=== PATIENT | female | born 1945 | race Two or more races ===

== ENCOUNTER → 2021-09-18 12:49 | Outpatient (BNVA) | payer OTHER, SELFPAY | PROVIDERS: PCP Pediatrics; Visit Provider Nurse Practitioner Family | DX: G20 Parkinson's disease (principal); K59.00 Constipation, unspecified; Z79.899 Other long term (current) drug therapy | CPT/HCPCS: 99212 ==

== ENCOUNTER → 2021-12-23 12:47 | Outpatient (BNVA) | payer OTHER, SELFPAY | PROVIDERS: PCP Pediatrics; Visit Provider Nurse Practitioner Family | DX: G20 Parkinson's disease (principal); K59.00 Constipation, unspecified | CPT/HCPCS: 99212 ==

== ENCOUNTER → 2022-09-09 09:57 | Outpatient (BNVA) | payer OTHER, SELFPAY | PROVIDERS: PCP Pediatrics; Visit Provider Nurse Practitioner Family | DX: G20 Parkinson's disease (principal); R44.3 Hallucinations, unspecified | CPT/HCPCS: 99212 ==

== ENCOUNTER 2023-03-16 09:13 | Outpatient (AMB) | payer OTHER, SELFPAY ==
--- NOTE | 2023-03-16 09:18 | MHC.OFFVIS ---
Intake Vital Signs 03/16/23 09:30 Height 5 ft 2 in Weight 152 lb BMI 27.8 BP 124/84 Blood Pressure Location Rt brachial Position Sitting Pulse 61 Pulse Source Pulse Oximeter Pulse Oximetry (%) 98 Oxygen Delivery Method Room Air Intake Visit Reasons: 4 mo f/u for Parkinsons Intake Note: Patient presents for 4 month follow up. Patient states she had dyalisis on Tuesday she got aggressive with the nurse asking why people were leaving and she was still stuck in the room,very anxious. Allergies thioridazine [From Mellaril] Adverse Reaction (Mild, Verified 03/16/23 09:27) other Medication List - Last Reconciled 03/16/23 by LEIDY Ramirez aspirin 81 mg PO DAILY atorvastatin 20 mg PO DAILY carbidopa-levodopa 25-100 mg 1.5 tabs PO TID 30 days carvedilol 12.5 mg PO BID hydralazine 25 mg PO TID lorazepam orally 3 x's per week prior to hemodialysis and qd prn PRN; 28 days melatonin 5 mg PO BEDTIME melatonin mg PO multivitamin 1 tab PO DAILY nifedipine ER 90 mg PO DAILY pantoprazole 40 mg PO BID pediatric multivitamin no.136 (Children Multivitamin chewable tablet) tabs PO risperidone 0.5 mg PO BID HPI HPI Comments History of Present Illness Details 78-yr-old female presents for f/u visit, accompanied by dtr. Pt's current PD medication regimen:? Carbidopa levodopa 1.5 tabs t.i.d., tolerating well. Do medication effects last between doses:? Yes ? She had an episode recently at dialysis where she was more agitated and argumentative w/ the dialysis staff- was wondering why every one was getting to leave but she was not- was saying that she was being held captive. She has been let go from psychiatry as she could not keep up w/ her therapy appointments. ADL's: Needs assist Swallowing: No issues Cough: None Drooling: None Orthostatic lightheadedness: No issues, stands slowly Constipation: At times, prune juice helps Freezing: Gets tired Stiffness: Some Tremor: Not much- sometimes in the leg Falls: No interval falls. Hallucinations: May see a baby. Memory: Memory issues are stable Sleep: Sleepy during the day- especially if she does not sleep well. Exercise: Walking in the house. [facility] Medical History (Updated 03/16/23 @ 18:01 by LEIDY Ramirez) GERD (gastroesophageal reflux disease) HLD (hyperlipidemia) HTN (hypertension) Stroke COVID-19 virus infection Depression Hemodialysis patient Anemia Fistula Surgical History H/O knee surgery H/O: hysterectomy Family History Brother Cancer Diabetes Social History Household Members: Family Alcohol intake: never Patient Tobacco Use Status: Never used Tobacco Review of Systems Const All systems reviewed & are unremarkable except as noted in HPI and below Physical Exam Vital Signs: Last Vital Signs Pulse 61 03/16/23 09:30 BP 124/84 03/16/23 09:30 Pulse Ox 98 03/16/23 09:30 Oxygen Delivery Method Room Air 03/16/23 09:30 BMI result Body Mass Index 27.8 Const General: cooperative and no acute distress Resp Effort & Inspection: normal respiratory effort and able to speak in complete sentences Neuro Other: Expression:? Decreased expression and blink Voice:? Soft voice Tremor:? Left upper extremity mild postural tremor Tone:? Bilateral upper extremity tone, more so on right Dyskinesia:? None FFM:? Bilateral upper extremity bradykinesia, more so on right Foot taps:? Bilateral lower extremity bradykinesia Gait:? Slow to stand, slight stoop no arm swing short steps with narrow base, but steady. Psych:? Pleasant affect. Cognition:? Provide simple but appropriate answers. Assessment & Plan Assessment & Plan (1) Parkinson's disease without dyskinesia: Code(s): G20.A1 - Parkinson's disease without dyskinesia, without mention of fluctuations (2) Hallucinations: Code(s): R44.3 - Hallucinations, unspecified (3) Constipation: Code(s): K59.00 - Constipation, unspecified Plan Continue carbidopa levodopa 25-100 mg 1.5 tabs p.o. t.i.d.. Continue Risperidone- PCP now managing- we can in future if needed. Add Lorazepam 0.25mg po prior to dialysis. Continue prune juice and as needed bowel regimen for constipation. Continue walking/exercise as tolerated. ? f/u in 3-4 months or sooner prn Medications: New lorazepam orally 3 x's per week prior to hemodialysis and qd prn PRN; 12 tabs 3RF anxiety 28 days Refilled carbidopa-levodopa 25-100 mg 1.5 tabs PO TID 126 tabs 6RF 30 days Coding Level of Care Code Est Pt Level 4 (33594) Diagnoses Parkinson's disease without dyskinesia G20.A1 Hallucinations R44.3 Constipation K59.00
[2023-03-16 09:30] VITALS: BP 124/84; PULSE 61; O2SAT 98; BMI 27.8
== END 2023-03-16 09:59 | disposition home or self-care (01) ==
PROVIDERS: Visit Provider Nurse Practitioner Family
DX: G20.A1 Parkinson's disease without dyskinesia, without mention of fluctuations (principal); R44.3 Hallucinations, unspecified; K59.00 Constipation, unspecified
CPT/HCPCS: 99214

== ENCOUNTER → 2023-03-16 09:13 | Outpatient (BNVA) | payer OTHER, SELFPAY | PROVIDERS: Visit Provider Nurse Practitioner Family | DX: G20.A1 Parkinson's disease without dyskinesia, without mention of fluctuations (principal); K59.00 Constipation, unspecified; R44.3 Hallucinations, unspecified | CPT/HCPCS: 99212 ==

== ENCOUNTER 2023-07-19 12:52 | Outpatient (AMB) | payer OTHER, SELFPAY ==
--- NOTE | 2023-07-19 13:05 | MHC.OFFVIS ---
Intake Vital Signs 07/19/23 13:06 Height 5 ft 2 in Weight 148 lb BMI 27.1 BP 126/82 Blood Pressure Location Rt brachial Position Sitting Pulse 64 Pulse Source Pulse Oximeter Pulse Oximetry (%) 97 Oxygen Delivery Method Room Air Intake Visit Reasons: 4 mnts f/u appt for Parkinson's-Conf Intake Note: Patient presents for 4 months follow up. it's a follow up for parkinsons Allergies thioridazine [From Mellaril] Adverse Reaction (Mild, Verified 07/19/23 13:10) other Medication List - Last Reconciled 07/19/23 by LEIDY Ramirez aspirin 81 mg PO DAILY atorvastatin 20 mg PO DAILY carbidopa-levodopa 25-100 mg 1.5 tabs PO TID 30 days carvedilol 12.5 mg PO BID hydralazine 25 mg PO TID loratadine 10 mg PO DAILY lorazepam orally 3 x's per week prior to hemodialysis and qd prn PRN; 28 days melatonin 5 mg PO BEDTIME melatonin mg PO multivitamin 1 tab PO DAILY nifedipine ER 90 mg PO DAILY pantoprazole 40 mg PO BID risperidone 0.5 mg PO BID HPI HPI Comments History of Present Illness Details 78-yr-old female presents for f/u visit, accompanied by her dtr. Pt's current PD medication regimen:? Carbidopa levodopa 1.5 tabs t.i.d., tolerating well. Do medication effects last between doses:? Yes ? She is doing better at dialysis since starting the pre-tx w/ Lorazepam. ADL's: Needs assist Swallowing: No issues Cough: None Drooling: None Orthostatic lightheadedness: No issues, stands slowly Constipation: At times, prune juice helps Freezing: Gets tired Stiffness: Some. Can have low back/hip pain jj during dialysis- Tylenol. Tremor: Not much- sometimes in the leg Falls: No interval falls. Hallucinations: May think her is coming and needs to cook for him. Memory: Memory issues are stable Sleep: Sleepy during the day. Exercise: Walking in the house. May use w/c for longer trips to the store. [facility] Medical History (Updated 07/19/23 @ 13:38 by LEIDY Ramirez) Parkinson's disease GERD (gastroesophageal reflux disease) HLD (hyperlipidemia) HTN (hypertension) Stroke COVID-19 virus infection Depression Hemodialysis patient Anemia Fistula Surgical History H/O knee surgery H/O: hysterectomy Family History Brother Cancer Diabetes Social History Household Members: Family Alcohol intake: never Patient Tobacco Use Status: Never used Tobacco Review of Systems Const All systems reviewed & are unremarkable except as noted in HPI and below Physical Exam Vital Signs: Last Vital Signs Pulse 64 07/19/23 13:06 BP 126/82 07/19/23 13:06 Pulse Ox 97 07/19/23 13:06 Oxygen Delivery Method Room Air 07/19/23 13:06 BMI result Body Mass Index 27.1 Const General: cooperative and no acute distress Resp Effort & Inspection: normal respiratory effort and able to speak in complete sentences Neuro Other: Cognition:? Provide simple but appropriate answers. Expression:? Decreased expression and blink Voice:? Soft voice Tremor:?No tremor seen today Tone:? Bilateral upper extremity tone, more so on right Dyskinesia:? None FFM:? Bilateral upper extremity bradykinesia, more so on right Foot taps:? Bilateral lower extremity bradykinesia, more so on right Gait:? Slow to stand, slight stoop no arm swing short steps with narrow base, but steady. Psych:? Pleasant affect. Assessment & Plan Assessment & Plan (1) Parkinson's disease without dyskinesia: Code(s): G20.A1 - Parkinson's disease without dyskinesia, without mention of fluctuations (2) Hallucinations: Code(s): R44.3 - Hallucinations, unspecified Plan Continue carbidopa levodopa 25-100 mg 1.5 tabs p.o. t.i.d.. Continue Risperidone- PCP now managing- we can in future if needed. Continue Lorazepam 0.25mg po prior to dialysis. Continue prune juice and as needed bowel regimen for constipation. Continue walking/exercise as tolerated. f/u in 4 months or sooner prn. Medications: Refilled carbidopa-levodopa 25-100 mg 1.5 tabs PO TID 30 days 126 tabs 6RF lorazepam orally 3 x's per week prior to hemodialysis and qd prn PRN; 28 days 12 tabs 3RF anxiety Coding Level of Care Code Est Pt Level 4 (00427) Diagnoses Parkinson's disease without dyskinesia G20.A1 Hallucinations R44.3
[2023-07-19 13:06] VITALS: BP 126/82; PULSE 64; O2SAT 97; BMI 27.1
== END 2023-07-19 13:33 | disposition home or self-care (01) ==
PROVIDERS: PCP Pediatrics; Visit Provider Nurse Practitioner Family
DX: G20.A1 Parkinson's disease without dyskinesia, without mention of fluctuations (principal); R44.3 Hallucinations, unspecified
CPT/HCPCS: 99214

== ENCOUNTER → 2023-07-19 12:52 | Outpatient (BNVA) | payer OTHER, SELFPAY | PROVIDERS: PCP Pediatrics; Visit Provider Nurse Practitioner Family | DX: G20.A1 Parkinson's disease without dyskinesia, without mention of fluctuations (principal); R44.3 Hallucinations, unspecified | CPT/HCPCS: 99212 ==

== ENCOUNTER 2024-06-12 13:26 | Outpatient (AMB) | payer OTHER, SELFPAY ==
[2024-06-12 13:42] VITALS: BP 124/78; PULSE 64; O2SAT 98; BMI 26.0
--- NOTE | 2024-06-12 13:42 | A.OFFVIS_ITS ---
Vital Signs 06/12/24 13:42 Height 5 ft 2 in Weight 142 lb 6 oz BMI 26.0 BP 124/78 Blood Pressure Location Rt brachial Position Sitting Pulse 64 Pulse Source Pulse Oximeter Pulse Oximetry (%) 98 Oxygen Delivery Method Room Air Intake Visit Reasons: Follow up Intake Note: Feeling weaker in knees Allergies thioridazine [From Mellaril] Adverse Reaction (Mild, Verified 06/12/24 13:44) other Medication List - Last Reconciled 06/12/24 by LEIDY Ramirez aspirin 81 mg PO DAILY atorvastatin 20 mg PO DAILY carbidopa-levodopa 25-100 mg 1.5 tabs PO TID 30 days carvedilol 12.5 mg PO BID hydralazine 25 mg PO TID loratadine 10 mg PO DAILY lorazepam orally 3 x's per week prior to hemodialysis and qd prn PRN; 28 days melatonin 5 mg PO BEDTIME melatonin mg PO multivitamin 1 tab PO DAILY nifedipine ER 90 mg PO DAILY pantoprazole 40 mg PO BID risperidone 0.5 mg PO BID HPI Comments Details: 79-yr-old female presents for f/u visit, accompanied by her dtr. Pt's dtr reports pt had a fall while walking on 05/18/24 when possibly her jnee gave out and hse fell. During the [facility] ER work-up, an incidental enlarged right kidney lesion was noted. Daughter shared patient discharge summary with me, however she is not clear if this information was shared with PCP or her strand buncher fine wire or dialysis team. Daughter also notes, that patient has been reporting abdominal discomfort while she was at dialysis. Daughter wonders if this pain could be related to the right renal lesion/cyst, however patient can not describe where or the type of abdominal discomfort she has been having at dialysis. 05/18/24, [facility], CT Abdomen and Pelvis W/O Contrast, CT Lumbar Spine W/O Contrast IMPRESSION: 1. No acute pathology in the abdomen, pelvis and lumbar spine. 2. 3.1 cm homogenously hyperdense lesion in the right kidney has significantly increased in size since 2018 where it measured 1.1 cm. This likely represents increase in size of proteinaceous/hemorrhagic cyst. Recommend nonemergent follow-up with MRI abdomen with and without contrast versus CT renal mass protocol for further characterization. In terms of her Parkinson's, patient feels as though she is stable. Pt's current PD medication regimen:? Carbidopa levodopa 1.5 tabs t.i.d., tolerating well. Using Lorazepam prior to dialysis prn. Using melatonin for sleep. Do medication effects last between doses:? Yes ? ADL's: Continues to need assist Swallowing: No issues Cough: None Drooling: None Orthostatic lightheadedness: May be mild, occasionally, but generally stand slowly. Constipation: At times, uses p.r.n. senna, which helps Freezing: Denies Stiffness: Some. Can have low back/hip pain jj during dialysis- Tylenol helps. Tremor: Not much Falls: As above Hallucinations: May look for her babies or other family members Memory: Memory issues are stable Sleep: Sleepy during the day. Exercise: Walking in the house- usually w/o walker. May use w/c for longer trips to the store. [facility] Medical History Parkinson's disease GERD (gastroesophageal reflux disease) HLD (hyperlipidemia) HTN (hypertension) Stroke COVID-19 virus infection Depression Hemodialysis patient Anemia Fistula Surgical History H/O knee surgery H/O: hysterectomy Family History Brother Cancer Diabetes Social History Household Members: Family Alcohol intake: never Patient Tobacco Use Status: Never used Tobacco Physical Exam Vital Signs: Last Vital Signs Pulse 64 06/12/24 13:42 BP 124/78 06/12/24 13:42 Pulse Ox 98 06/12/24 13:42 Oxygen Delivery Method Room Air 06/12/24 13:42 BMI result Body Mass Index 26.0 Const General: cooperative and no acute distress Resp Effort & Inspection: normal respiratory effort and able to speak in complete sentences Neuro Other: Cognition:? Provide simple but appropriate answers. Expression:? Decreased expression and blink Voice:? Soft voice Tremor:?No tremor seen today Tone:? Bilateral upper extremity tone, more so on right Dyskinesia:? None FFM:? Bilateral upper extremity bradykinesia, more so on right Foot taps:? Bilateral lower extremity bradykinesia, more so on right Gait:? Slow to stand, slight stoop no arm swing short steps with narrow base, but steady. Psych:? Pleasant affect. Assessment & Plan Assessment & Plan (1) Parkinson's disease without dyskinesia: Code(s): G20.A1 - Parkinson's disease without dyskinesia, without mention of fluctuations Category: Medical (2) Hallucinations: Code(s): R44.3 - Hallucinations, unspecified Category: Medical (3) Constipation: Code(s): K59.00 - Constipation, unspecified Category: Medical (4) Lesion of right [place] kidney: Code(s): N28.9 - Disorder of kidney and ureter, unspecified Category: Medical Plan Printed a copy of the 05/18/2024 CT abdomen/lumbar spine report, daughter states she will share this with patient's PCP and dialysis/nephrology team. Continue carbidopa levodopa 25-100 mg 1.5 tabs p.o. t.i.d.. Continue Risperidone- PCP now managing- we can in future if needed. Continue Lorazepam 0.25mg po p.r.n. prior to dialysis. Continue prune juice and senna as needed for constipation. Continue walking/exercise as tolerated. f/u in 6 months or sooner prn. Medications: Changed From melatonin 5 mg PO BEDTIME To melatonin 10 mg (2 x 5 mg) PO BEDTIME 30 days 60 tabs 6RF Refilled lorazepam orally 3 x's per week prior to hemodialysis and qd prn PRN; 28 days 15 tabs 5RF anxiety carbidopa-levodopa 25-100 mg 1.5 tabs PO TID 30 days 126 tabs 6RF Coding Level of Care Code Est Pt Level 4 (68061) Diagnoses Parkinson's disease without dyskinesia G20.A1 Hallucinations R44.3 Constipation K59.00 Lesion of right [place] kidney N28.9
--- OUTSIDE RECORDS SUMMARY | 2024-06-12 15:42 | XMS_ITS | Continuity of Care Document ---
Author Organization [facility] ter Address [address] [place] [id number]- Care Team Providers Care Business Analyst Consultant Name Role Phone Eliseo Watkins MD Primary Care Physician [place] [facility] [place]18[place] - 05/19/[address] [address]- Encounter Diagnosis Fall at home(Final) - 05/19/24 Discharge Disposition: A-D/C Home Attending Physician: Cierra Interiano MD Admitting Physician: Cierra Interiano MD Referring Physician: Not on Staff, Referring MD Encounter Type: Disch ES Allergies, Adverse Reactions, Alerts Substance Criticality Severity Reaction Reaction Severity Status thioridazine ? unsure Active Mellaril prolonged QT Active Immunizations Given and Recorded Vaccine Date Status Refusal Reason influenza virus vaccine, inactivated 03/16/23 Cm rded influenza virus vaccine, inactivated 03/24/22 Cm rded influenza virus vaccine, inactivated 03/13/21 Cm rded influenza virus vaccine, inactivated 03/12/20 Give n influenza virus vaccine, inactivated 02/19/17 Give n influenza virus vaccine, inactivated 02/11/16 Cm rded influenza virus vaccine, inactivated 03/20/15 Give n influenza virus vaccine, inactivated 1 02/19/14 Re corded influenza virus vaccine, inactivated 02/16/13 Give n influenza virus vaccine, inactivated 2 02/22/12 Gi chris influenza virus vaccine, inactivated 3 03/10/10 Gi chris SARS-CoV-2 (COVID-19) mRNA-1273 vaccine 03/12/22 R ecorded SARS-CoV-2 (COVID-19) mRNA-1273 vaccine 11/13/21 R ecorded SARS-CoV-2 (COVID-19) mRNA-1273 vaccine 04/03/21 R ecorded SARS-CoV-2 (COVID-19) mRNA-1273 vaccine 08/01/20 R ecorded SARS-CoV-2 (COVID-19) mRNA-1273 vaccine 07/04/20 R ecorded Influenza Virus Vaccine (oldterm) 04/05/16 Recorde d Zoster Vaccine Live 01/08/15 Recorded pneumococcal 13-valent vaccine 10/22/14 Given tetanus/diphtheria/pertussis, acel(Tdap) 04/30/14 Given pneumococcal 23-valent vaccine 4 08/01/13 Given Pneumococcal Poly (PPV23) (oldterm) 5 04/14/11 Giv en Influenza Vaccine (oldterm) 6 03/03/11 Given Influenza Vaccine (oldterm) 7 03/12/09 Given Influenza Vaccine (oldterm) 8 04/14/07 Given tetanus-diphtheria toxoids (Td) 9 06/10/09 Given tetanus-diphtheria toxoids (Td) 03/24/05 Given influ virus vac, H1N1, inactive(oldterm) 10 03/12/09 Given Influenza Inactive (IM) (oldterm) 11 04/03/08 Give n 1Location History: [facility] 2Admin Note: VIS dated 11/29/11 3Admin Note: VIS GIVEN 4Result Comment: [08/01/2013] Given by Buddy Velasco 5Admin Note: vis 12/25/06 6Admin Note: VIS GIVEN 7Admin Note: VIS GIVEN 01/07/2009 8Admin Note: VIS 12/12/2006 9Admin Note: vis 11/06/93 10Admin Note: VIS GIVEN 02/28/2009 11Admin Note: VIS [id number] Problem List Condition Confirmation Course Effective Dates Status H ealth Status Informant Anemia Confirmed Active Dementia Confirmed Active Dyslipidemia Confirmed Active ESRD (end stage renal disease) Confirmed Active GERD without esophagitis Confirmed Active H/O GI bleed Confirmed Active Heart failure with preserved ejection fraction Confirmed Active Hyperkalemia Confirmed Active Hypertension Confirmed Active Non-French speaking patient Confirmed Active Mammographic Microcalcification, right breast Confirmed 05/12/10 Active Obstructive sleep apnea syndrome Confirmed Active Parkinsons disease 1 Confirmed Active *[id number] [facility] Confirmed Active Postmenopausal bleeding Confirmed Active Remote history of stroke Confirmed Active Schizophrenia Confirmed Active Thrombocytopenia Confirmed Active 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 FINDINGS: LINES AND TUBES: None. LUNGS AND PLEURA: Clear lungs. Normal pulmonary vascularity. No pleural effusion. No pneumothorax. HEART, MEDIASTINUM AND SILVIA: The cardiac silhouette is mildly prominent, less prominent compared to the prior exam. Normal mediastinal and hilar contour. BONES AND SOFT TISSUES: No acute abnormality. IMPRESSION: No evidence of acute abnormality. WSN: [id number] Ordering Physician: Mena Monte Dictated By: Brenda Ferrer MD Dictated Date/Time: 05/19/24 5:41 am Reviewed By: Brenda Ferrer MD Signed By: Brenda Ferrer MD Signed Date/Time: 05/19/24 5:41 am Transcribed By: NELA Transcribed Date/Time: 05/19/24 5:37 am * Exam Date Time Procedure Performing Provider Status 05/18/24 10:[address] Lumbar Spine W/O Contrast Colon , Lala; Auth (Verified) Notes: (CT Lumbar Spine W/O Contrast) Reason For Exam: midline tenderness; fall;Trauma RESULT: CT Lumbar Spine W/O Contrast CT Abdomen and Pelvis W/O Contrast, CT Lumbar Spine W/O Contrast Hx of Present Illness: fall, + headstrike, hx dementia; Reason: Pain; LLQ pain; Clinical Question(s): Other:; Order Comment: TECHNIQUE: Spiral CT through the abdomen and pelvis without IV contrast formatted in 3 planes. Thisstudy was performed without oral contrast. Weight- based protocol using automatic tube modulation was used to optimize exposure parameters. CTDIvol Body: 18.90 mGy, DLP Body: 1087 mGy*cm. COMPARISON: 07/31/2017 and multiple priors FINDINGS: Optician Manager View Findings, Lines and Tubes: None. Visualized Chest: Lung bases are clear. No pleural effusion. The heart is normal in size. No pericardial effusion. Diaphragm: Normal. Liver: Normal. Gallbladder: Cholelithiasis without acute cholecystitis. Bile ducts: No biliary ductal dilation. Spleen: Mild splenomegaly measuring 14 cm craniocaudally. Pancreas: Mildly atrophic parenchyma. Adrenal glands: Normal. Kidneys and ureters: Large right parapelvic cyst unchanged since prior examination. Multiple homogenously hyperdense subcentimeter hemorrhagic/proteinaceous cysts unchanged. New 2.5 x 2.1 x 3.1 cm slightly hyperdense lesion at the right upper pole increased in size since prior examination. (Series 201, image 56). Atrophic bilateral kidneys consistent with patient's known chronic kidney disease. Bladder: Decompressed urinary bladder. Reproductive organs: Unremarkable. Stomach, small bowel, and large bowel: Severe diverticulosis of the sigmoid colon without acute diverticulitis. No bowel obstruction or inflammation. Appendix: Normal. Peritoneum and retroperitoneum: No ascites or pneumoperitoneum. No omental or mesenteric lesions. Lymph nodes: No enlarged lymph nodes. Blood vessels: Severe atherosclerotic vascular calcification but no aneurysm. Abdominal and pelvic wall: Small fat-containing umbilical hernia. Pelvic floor laxity. Bones: Chronic appearing T7 vertebral body fracture with mild loss of height (series 203, image 70). Multilevel degenerative changes in the lumbar spine. IMPRESSION: 1. No acute pathology in the abdomen, pelvis and lumbar spine. 2. 3.1 cm homogenously hyperdense lesion in the right kidney has significantly increased in size since 2018 where it measured 1.1 cm. This likely represents increase in size of proteinaceous/hemorrhagic cyst. Recommend nonemergent follow-up with MRI abdomen with and without contrast versus CT renalmass protocol for further characterization. An actionable message (Yellow) has been communicated via the Cartesian system on 05/18/2024 10:46 PM, Message ID [id number]. I have personally reviewed the images and I agree with this report. WSN: [id number] Ordering Physician: Mena Monte Dictated By: Albert Caceres MD Dictated Date/Time: 05/18/24 10:46 p Reviewed By: Rusty Araujo MD Signed By: Rusty Araujo MD Signed Date/Time: 05/18/24 10:51 pm Transcribed By: NELA Transcribed Date/Time: 05/18/24 10:40 pm * Exam Date Time Procedure Performing Provider Status 05/18/24 10:[address] Abdomen and Pelvi s W/O Contrast Colon , Lala; Auth (Verified) Notes: (CT Abdomen and Pelvis W/O Contrast) Reason For Exam: LLQ pain;Pain RESULT: CT Abdomen and Pelvis W/O Contrast CT Abdomen and Pelvis W/O Contrast, CT Lumbar Spine W/O Contrast Hx of Present Illness: fall, + headstrike, hx dementia; Reason: Pain; LLQ pain; Clinical Question(s): Other:; Order Comment: TECHNIQUE: Spiral CT through the abdomen and pelvis without IV contrast formatted in 3 planes. Thisstudy was performed without oral contrast. Weight- based protocol using automatic tube modulation was used to optimize exposure parameters. CTDIvol Body: 18.90 mGy, DLP Body: 1087 mGy*cm. COMPARISON: 07/31/2017 and multiple priors FINDINGS: Optician Manager View Findings, Lines and Tubes: None. Visualized Chest: Lung bases are clear. No pleural effusion. The heart is normal in size. No pericardial effusion. Diaphragm: Normal. Liver: Normal. Gallbladder: Cholelithiasis without acute cholecystitis. Bile ducts: No biliary ductal dilation. Spleen: Mild splenomegaly measuring 14 cm craniocaudally. Pancreas: Mildly atrophic parenchyma. Adrenal glands: Normal. Kidneys and ureters: Large right parapelvic cyst unchanged since prior examination. Multiple homogenously hyperdense subcentimeter hemorrhagic/proteinaceous cysts unchanged. New 2.5 x 2.1 x 3.1 cm slightly hyperdense lesion at the right upper pole increased in size since prior examination. (Series 201, image 56). Atrophic bilateral kidneys consistent with patient's known chronic kidney disease. Bladder: Decompressed urinary bladder. Reproductive organs: Unremarkable. Stomach, small bowel, and large bowel: Severe diverticulosis of the sigmoid colon without acute diverticulitis. No bowel obstruction or inflammation. Appendix: Normal. Peritoneum and retroperitoneum: No ascites or pneumoperitoneum. No omental or mesenteric lesions. Lymph nodes: No enlarged lymph nodes. Blood vessels: Severe atherosclerotic vascular calcification but no aneurysm. Abdominal and pelvic wall: Small fat-containing umbilical hernia. Pelvic floor laxity. Bones: Chronic appearing T7 vertebral body fracture with mild loss of height (series 203, image 70). Multilevel degenerative changes in the lumbar spine. IMPRESSION: 1. No acute pathology in the abdomen, pelvis and lumbar spine. 2. 3.1 cm homogenously hyperdense lesion in the right kidney has significantly increased in size since 2018 where it measured 1.1 cm. This likely represents increase in size of proteinaceous/hemorrhagic cyst. Recommend nonemergent follow-up with MRI abdomen with and without contrast versus CT renalmass protocol for further characterization. An actionable message (Yellow) has been communicated via the Cartesian system on 05/18/2024 10:46 PM, Message ID [id number]. I have personally reviewed the images and I agree with this report. WSN: [id number] Ordering Physician: Mena Monte Dictated By: Albert Caceres MD Dictated Date/Time: 05/18/24 10:46 p Reviewed By: Rusty Araujo MD Signed By: Rusty Araujo MD Signed Date/Time: 05/18/24 10:51 pm Transcribed By: NELA Transcribed Date/Time: 05/18/24 10:40 pm * Exam Date Time Procedure Performing Provider Status 05/18/24 10:[address] Cervical Spine W/O Contrast Colon , Lala; Auth (Verified) Notes: (CT Cervical Spine W/O Contrast) Reason For Exam: Neck trauma, dangerous injury mechanism;Other: RESULT: CT Cervical Spine W/O Contrast CT Head/Brain W/O Contrast, CT Cervical Spine W/O Contrast INDICATION: Hx of Present Illness: fall, + headstrike, hx dementia; Reason: Trauma; fall; +headstrike; Clinical Question(s): Subarachnoid Hemorrhage TECHNIQUE: Noncontrast head CT using axial technique was reconstructed in axial and coronal planes.Noncontrast spiral CT through the cervical spine was formatted in 3 planes. Automatic tube modulation was used for the cervical spine and iterative dose reconstruction was used for both the head and cervical spine to optimize scan parameters and image quality. CTDIvol Body: 10.60 mGy, DLP Body: 258 mGy*cm. CTDIvol Head: 39.80 mGy, DLP Head: 672 mGy*cm. COMPARISON: None. FINDINGS: Optician Manager View Findings, Lines and Tubes: None. BRAIN AND EXTRA-AXIAL SPACES: No parenchymal hemorrhage, midline shift, or mass effect. Sosa-white matter differentiation is wellpreserved. No acute infarct. Negative insular ribbon sign. Atherosclerotic vascular calcification of the carotid arteries but negative hyperdense vessel sign. Area of encephalomalacia within the leftbasal ganglia. Ventricles, sulci, and basilar cisterns are normal. Mild low-density white matter changes. No subarachnoid hemorrhage. No subdural or epidural collection. CALVARIUM, SKULL BASE, AND SOFT TISSUES: No fractures or suspicious bony lesions. The paranasal sinuses and mastoid air cells are clear. Visualized orbits and globes are intact. The extracranial soft tissues are unremarkable. CERVICAL SPINE: No fracture. No acute osseous abnormalities. Normal alignment. No locked or perched facet. Mild multilevel degenerative disc space narrowing andend plate irregularity. OTHER BONES: No acute abnormality. CERVICAL SOFT TISSUES AND LUNG APICES: Normal soft tissues. Patchy ground glass opacities in the visualized lungs. 1.6 cm peripherally calcified left thyroid nodule unchanged since at least 2020 (series 302, image 76). IMPRESSION: 1. No acute traumatic injury in the head or cervical spine. 2. 1.6 cm peripherally calcified left thyroid nodule unchanged since at least 2020. I have personally reviewed the images and I agree with this report. WSN: [id number] Ordering Physician: Mena Monte Dictated By: Albert Caceres MD Dictated Date/Time: 05/18/24 10:26 p Reviewed By: Peter Saba MD Signed By: Peter Saba MD Signed Date/Time: 05/18/24 10:31 pm Transcribed By: NELA Transcribed Date/Time: 05/18/24 10:23 pm * Exam Date Time Procedure Performing Provider Status 05/18/24 10:[address] Head/Brain W/O Contrast Colon , T atiana; Auth (Verified) Notes: (CT Head/Brain W/O Contrast) Reason For Exam: fall; +headstrike;Trauma RESULT: CT Head/Brain W/O Contrast CT Head/Brain W/O Contrast, CT Cervical Spine W/O Contrast INDICATION: Hx of Present Illness: fall, + headstrike, hx dementia; Reason: Trauma; fall; +headstrike; Clinical Question(s): Subarachnoid Hemorrhage TECHNIQUE: Noncontrast head CT using axial technique was reconstructed in axial and coronal planes.Noncontrast spiral CT through the cervical spine was formatted in 3 planes. Automatic tube modulation was used for the cervical spine and iterative dose reconstruction was used for both the head and cervical spine to optimize scan parameters and image quality. CTDIvol Body: 10.60 mGy, DLP Body: 258 mGy*cm. CTDIvol Head: 39.80 mGy, DLP Head: 672 mGy*cm. COMPARISON: None. FINDINGS: Optician Manager View Findings, Lines and Tubes: None. BRAIN AND EXTRA-AXIAL SPACES: No parenchymal hemorrhage, midline shift, or mass effect. Sosa-white matter differentiation is wellpreserved. No acute infarct. Negative insular ribbon sign. Atherosclerotic vascular calcification of the carotid arteries but negative hyperdense vessel sign. Area of encephalomalacia within the leftbasal ganglia. Ventricles, sulci, and basilar cisterns are normal. Mild low-density white matter changes. No subarachnoid hemorrhage. No subdural or epidural collection. CALVARIUM, SKULL BASE, AND SOFT TISSUES: No fractures or suspicious bony lesions. The paranasal sinuses and mastoid air cells are clear. Visualized orbits and globes are intact. The extracranial soft tissues are unremarkable. CERVICAL SPINE: No fracture. No acute osseous abnormalities. Normal alignment. No locked or perched facet. Mild multilevel degenerative disc space narrowing andend plate irregularity. OTHER BONES: No acute abnormality. CERVICAL SOFT TISSUES AND LUNG APICES: Normal soft tissues. Patchy ground glass opacities in the visualized lungs. 1.6 cm peripherally calcified left thyroid nodule unchanged since at least 2020 (series 302, image 76). IMPRESSION: 1. No acute traumatic injury in the head or cervical spine. 2. 1.6 cm peripherally calcified left thyroid nodule unchanged since at least 2020. I have personally reviewed the images and I agree with this report. WSN: [id number] Ordering Physician: Mena Monte Dictated By: Albert Caceres MD Dictated Date/Time: 05/18/24 10:26 p Reviewed By: Peter Saba MD Signed By: Peter Saba MD Signed Date/Time: 05/18/24 10:31 pm Transcribed By: NELA Transcribed Date/Time: 05/18/24 10:23 pm * Exam Date Time Procedure Performing Provider Status 05/18/24 10:[address] Thoracic Spine W/O Contrast Colon , Lala; Auth (Verified) Notes: (CT Thoracic Spine W/O Contrast) Reason For Exam: fall; midline tenderness;Back Pain RESULT: CT Thoracic Spine W/O Contrast CT Thoracic Spine W/O Contrast INDICATION: Hx of Present Illness: fall, + headstrike, hx dementia; Reason: Back Pain; fall; midline tenderness; Clinical Question(s): Fracture Dislocation, Fracture/Dislocation TECHNIQUE: Noncontrast CT of the thoracic spine was performed. Bone and soft tissue algorithms werereconstructed along with coronal and sagittal computations. Weight-based protocol using automatic tube modulation was used to optimize exposure parameters. RADIATION DOSE PARAMETERS: CTDIvol Body: 12.80 mGy, DLP Body: 450 mGy*cm. COMPARISON: None FINDINGS: Spine: No fractures or bone lesion. The alignment is maintained. Degenerative changes are noted including disc height loss as well as mild loss of vertebral body height of a mid thoracic vertebral body. Soft tissues: No acute abnormality in the paravertebral soft tissues. IMPRESSION: Mild degenerative changes of the thoracic spine without acute osseous pathology. I have personally reviewed the images and I agree with this report. WSN: [id number] Ordering Physician: Mena Monte Dictated By: Alvina Fisher MD Dictated Date/Time: 05/18/24 10:48 p Reviewed By: Rusty Araujo MD Signed By: Rusty Araujo MD Signed Date/Time: 05/18/24 10:53 pm Transcribed By: NELA Transcribed Date/Time: 05/18/24 10:43 pm Vital Signs Most recent to oldest [Reference Range]: 1 2 Oxygen Saturation [94-100 %] 97 % (05/18/24 11:57 PM) 99 % (05/18/24 8:37 PM) Pulse Rate [55-90 bpm] 77 bpm (05/18/24 11:57 PM) 68 bpm (05/18/24 8:37 PM) Blood Pressure [90-138/55-84 mm Hg] 175/ 50mm Hg *H* (05/18/24 11:57 PM) 157/47mm Hg *H* (05/18/24 8:37 PM) Respiratory Rate [16-30 br/min] 18 br/mi n (05/18/24 11:57 PM) 18 br/min (05/18/24 8:37 PM) Temperature [96.8-100.4 DegF] 97.9 DegF (05/18/24 8:37 PM) Mode of Delivery (Oxygen) Room air (05/18/24 11:57 PM) Room air (05/18/24 8:37 PM) Blood pressure sites Arm, right (05/18/24 11:57 PM) Arm, right (05/18/24 8:37 PM) Temperature Route Oral (05/18/24 8:37 PM) Social History Social History Type Response Smoking Status Never smoker; Tobacc o user in household: No entered on: 10/22/14 Sex Sex Representation Female (finding) EKG study * Event Display: EKG Authored Date: * Event Display: ECG 12-Lead Authored Date: Please click on pdf link to open report * Event Display: ECG 12-Lead Authored Date: Ventricular Rate: 71 BPM Atrial Rate: 71 BPM P-R Interval: 160 ms QRS Duration: 90 ms Q-T Interval: 440 ms QTC Calculation(Bazett): 478 ms P [place]: 43 degrees R [place]: -12 degrees T [place]: 15 degrees Normal sinus rhythm Moderate voltage criteria for LVH, may be normal variant ( R in aVL , Angora product ) Borderline ECG When compared with ECG of 23-Jan-2024 00:28, Nonspecific T wave abnormality now evident in Inferior leads Confirmed by HILARIA GLASGOW MD ([id number]) on 05/19/2024 8:21:11 AM [place]: HILARIA GLASGOW MD Patient Care team information Care Team Personnel Name: Shellie Gonzales RN Position: S RN Member Role: Primary Care Nurse Name: Michael Duenas NP Position: [facility] Associate Professional Member Role: Lifetime Consulting Provider Address: [address] [place] [address]- Telecom: Name: Lina Lin RN Position: [facility] RN Supv Member Role: Primary Care Nurse Name: Lilian Amin RN Position: [facility] ED RN W/OE and Tasks Member Role: Primary Care Nurse Name: Rand Hunt RN Position: [facility] RN Member Role: Primary Care Nurse Name: Mary Cantu RN Position: [facility] RN Member Role: Primary Care Nurse Name: Michelle Seo RN Position: [facility] RN Member Role: Primary Care Nurse Name: May Carrillo RN Position: [facility] AMB Nurse Member Role: Primary Care Nurse Name: Elvia Marc RN Position: [facility] RN Member Role: Primary Care Nurse Name: Theresa Crowder Position: [facility] Outreach Member Role: Lifetime Consulting Physician Name: Liza Bailey RN Position: [facility] RN Member Role: Primary Care Nurse Name: Ofe Hunt RN Position: [facility] Onco RN Member Role: Primary Care Nurse Name: Karla Galloway RN Position: [facility] OB RN Member Role: Primary Care Nurse Name: Zaira Gooden RN Position: [facility] RN Member Role: Primary Care Nurse Name: Mercy Rasmussen RN Position: [facility] RN Member Role: Primary Care Nurse Name: Jaclyn Clark RN Position: [facility] RN Member Role: Primary Care Nurse Name: Jane Doe NP Position: [facility] Associate Professional Member Role: Lifetime Consulting Provider Address: [address] [facility] [place] [address]- Telecom: Name: Tay Wills MD Position: [facility] Renal MD Member Role: Lifetime Consulting Physician Address: [address] [facility] [place] [address]- [place] Telecom: Name: Jazmín Carrillo RN Position: [facility] RN Member Role: Primary Care Nurse Name: Rosa Mata RN Position: [facility] RN Member Role: Primary Care Nurse Name: Sybil Swan RN Position: [facility] RN Member Role: Primary Care Nurse Name: Gonzalo Call RN Position: [facility] ED RN W/OE and Tasks Member Role: Primary Care Nurse Name: No Ayala RN Position: [facility] RN Member Role: Primary Care Nurse Name: Sarita Gaxiola RN Position: [facility] RN Member Role: Primary Care Nurse Name: Alvarez Larose DO Position: [facility] Renal MD Member Role: Lifetime Consulting Physician Address: [address] [place], [place] [address] [place], [place] [address] Telecom: Name: Moni Gracia RN Position: [facility] RN Member Role: Primary Care Nurse Name: Chevy Burnett III, RN Position: [facility] RN Member Role: Primary Care Nurse Name: Mildred Kaur RN Position: [facility] RN Member Role: Primary Care Nurse Name: Rosa Nieto RN Position: [facility] RN Member Role: Primary Care Nurse Name: Abi Schwartz RN Position: [facility] RN Member Role: Primary Care Nurse Name: Patito Cano RN Position: [facility] AMB Nurse Member Role: Primary Care Nurse Name: Chyna Cedeno RN Position: [facility] AMB Nurse Member Role: Primary Care Nurse Name: Kae Sheldon RN Position: [facility] RN Member Role: Primary Care Nurse Name: Ginger Laguna RN Position: [facility] RN Member Role: Primary Care Nurse Name: Eliseo Watkins MD Position: [facility] Physician - Primary Care Member Role: PCP Address: [address] [place] [id number]- Telecom: Name: Yuli Barahona RN Position: [facility] RN Member Role: Primary Care Nurse Name: Abena Gates RN Position: [facility] RN Member Role: Primary Care Nurse Name: Clark Walton RN Position: [facility] ED RN W/OE and Tasks Member Role: Primary Care Nurse Name: Carine Pacheco RN Position: [facility] RN Member Role: Primary Care Nurse Name: Nakul Todd RN Position: [facility] RN Member Role: Primary Care Nurse Name: Macey Dalal RN Position: [facility] RN Member Role: Primary Care Nurse Name: Rachel Dove RN Position: [facility] RN Member Role: Primary Care Nurse Name: Fox Washington RN Position: S RN Member Role: Primary Care Nurse Name: Edith Fisher RN Position: S RN Member Role: Primary Care Nurse Name: Merissa Quevedo RN Position: S RN Member Role: Primary Care Nurse Name: Rufino Silva MD Position: [facility] Renal MD Member Role: Lifetime Consulting Physician Address: [address] [place] [address] [facility] [address] Telecom: Care Team Related Persons Name: ANNEMARIE TA Name: ANNEMARIE TA SON IN LAW Name: RL TA Name: DELIA MORRELL Insurance Providers Guarantor name: SILVIA LOZANO Health Plan Information #: 1 Payer: NA Member Number: [id number] Policy Number: NA Group Number: [facility] Health Plan Information #: 2 Payer: NA Member Number: [id number] Policy Number: NA Group Number: NA
--- OUTSIDE RECORDS SUMMARY | 2024-06-12 15:43 | XMS_ITS | Clinical Summary ---
Author Organization Unknown Care Team Providers Care Grating Machine Operator Name Role Phone TARIQ ZUNIGA, MINOO Unavailable Unavailable JACLYN RN, SHARMAINE Unavailable Unavailable Payers Payer Name Policy Type Policy Number Effective Date Expira tion Date [facility] [id number] MEDICAID [facility] [id number] MEDICARE - [facility] [place]/SD - PD [id number] Problems Condition Name Condition Details Condition Category Status Onset Date Resolution Date Last Treatment Date Treating Clinician Comments PARKINSON'S DIS W/O DYSKINESIA, W/O MENTION OF FLUCTUATIONS Active 11-03 00:00: 00 DEM IN OTH DIS CLASSD ELSWHR,UNSP SEV,W/O BEH/PSYCH/MO OD/ANX Active 11-03 00:00: 00 SCHIZOPHRENI A, UNSPECIFIED Active 2021-05 00:00: 00 HYP HRT AND CHR KDNY DIS W HRT FAIL AND W STG 5 CHR KDNY/ESRD Active 11-03 00:00: 00 UNSPECIFIED DIASTOLIC (CONGESTIVE) HEART FAILURE Active 11-03 00:00: 00 TYPE 2 DIABETES MELLITUS W DIABETIC CHRONIC KIDNEY DISEASE Active 2022-05 1- 00:00: 00 END STAGE RENAL DISEASE Active 11-03 00:00: 00 BILATERAL PRIMARY 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 Ordering Clinician Indication Dosage Frequency Signature (SIG) Comments Components aspirin 81 mg tablet,nikolas yed release 2021-05 00:00: 00 Yes [id number] 1 tablet DAILY 1 tablet DAILY (route: oral) Med Classific ation: Hematolog ical Agents atorvastati n 20 mg tablet 2021-05- 00:00: 00 Yes [id number] 1 tablet DAILY 1 tablet DAILY (route: oral) Med Classific ation: Cardiovas cular Therapy Agents carbidopa 25 mg-levodopa 100 mg tablet 2021-05 00:00: 00 Yes [id number] 1 tablet 2 TIMES A WEEK 1 tablet 2 TIMES A WEEK (route: oral) Med Classific ation: Central Nervous System Agents loratadine 10 mg tablet 2021-05 00:00: 00 Yes [id number] 1 tablet DAILY 1 tablet DAILY (route: oral) Med Classific ation: Respirato ry Therapy Agents melatonin 5 mg tablet 2021-05 00:00: 00 08-11 23:59 :00 No [id number] 1 tablet BEDTIME 1 tablet BEDTIME (route: oral) Med Classific ation: Central Nervous System Agents multivitami n tablet 2021-05 00:00: 00 Yes [id number] 1 tablet DAILY 1 tablet DAILY (route: oral) Med Classific ation: Electroly te Balance-N utritiona l Products pantoprazol e 40 mg tablet,nikolas yed release 2021-05 00:00: 00 Yes [id number] 1 tablet DAILY 1 tablet DAILY (route: oral) Med Classific ation: Gastroint estinal Therapy Agents risperidone 0.5 mg tablet 2021-05 00:00: 00 Yes [id number] 1 tablet DAILY 1 tablet DAILY (route: oral) Med Classific ation: Central Nervous System Agents Alcohol Prep Pads 2021-05 00:00: 00 Yes [id number] 1 pads, medicat ed NEEDED 1 pads, medicated NEEDED (route: topical) Med Classific ation: Antisepti cs and Disinfect ants Lanhaydenus Richellear U-100 Insulin 100 unit/mL (3 mL) subcutaneou s pen 2021-05 00:00: 00 Yes [id number] 10 In unit DAILY 10 In unit DAILY (route: subcutaneo us) Med Classific ation: Endocrine carvedilol 25 mg tablet 2021-05 00:00: 00 Yes [id number] 1 tablet 2 TIMES DAILY 1 tablet 2 TIMES DAILY (route: oral) Med Classific ation: Cardiovas cular Therapy Agents hydralazine 25 mg tablet 2021-05 00:00: 00 Yes [id number] 1 tablet 3 TIMES DAILY 1 tablet 3 TIMES DAILY (route: oral) Med Classific ation: Cardiovas cular Therapy Agents nifedipine ER 90 mg tablet,exte nded release 2021-05 00:00: 00 Yes [id number] 1 tablet DAILY 1 tablet DAILY (route: oral) Med Classific ation: Cardiovas cular Therapy Agents Velphoro 500 mg chewable tablet 2021-05 00:00: 00 Yes [id number] 1 tablet 3 TIMES DAILY 1 tablet 3 TIMES DAILY (route: oral) Med Classific ation: Genitouri nary Therapy MelatoninMa x 10 mg chewable tablet 08-11 00:00: 00 Yes [id number] 1 tablet BEDTIME 1 tablet BEDTIME (route: oral) Med Classific ation: Central Nervous System Agents torsemide 20 mg tablet 10-26 00:00: 00 Yes [id number] 4 tablet DIRECTED 4 tablet DIRECTED (route: oral) Med Classific ation: Cardiovas cular Therapy Agents capsaicin 0.025 % topical cream 2023-05 0 00:00: 00 Yes [id number] 1 cm 2 TIMES DAILY 1 cm 2 TIMES DAILY (route: topical) Med Classific ation: Dermatolo gical Senna Lax 8.6 mg tablet 2023-05 0 00:00: 00 Yes [id number] 1-2 tablet BEDTIME 1-2 tablet BEDTIME (route: oral) Med Classific ation: Gastroint estinal Therapy Agents Vital Signs Vital Name Observation Time Observation Value Commen ts Temperature 2024-04-04 10:16:00.000 98.6 [degF] Temperature 2024-04-02 10:05:00.000 98.6 [degF] Temperature 2024-03-28 10:24:00.000 98.6 [degF] Temperature 2024-03-26 10:10:00.000 98.6 [degF] Pulse 2024-04-04 10:16:00.000 60 /min Pulse 2024-04-02 10:05:00.000 64 /min Pulse 2024-03-28 10:24:00.000 74 /min Pulse 2024-03-26 10:10:00.000 70 /min O2 Saturation (%) 2024-04-04 10:17:00.000 95 % O2 Saturation (%) 2024-04-02 10:05:00.000 99 % O2 Saturation (%) 2024-03-28 10:24:00.000 99 % O2 Saturation (%) 2024-03-26 10:11:00.000 99 % Respirations 2024-04-04 10:16:00.000 18 /min Respirations 2024-04-02 10:05:00.000 18 /min Respirations 2024-03-28 10:24:00.000 18 /min Respirations 2024-03-26 10:10:00.000 18 /min Weight (lbs) 2024-04-04 10:18:00.000 143 [lb_av] Weight (lbs) 2024-04-02 10:06:00.000 142 [lb_av] Weight (lbs) 2024-03-28 10:24:00.000 142 [lb_av] Weight (lbs) 2024-03-26 10:11:00.000 143 [lb_av] Systolic Blood Pressure 2024-04-04 10:16:00.000 140 mm [Hg] Systolic Blood Pressure 2024-04-02 10:05:00.000 143 mm [Hg] Systolic Blood Pressure 2024-03-28 10:24:00.000 141 mm [Hg] Systolic Blood Pressure 2024-03-26 10:10:00.000 158 mm [Hg] Diastolic Blood Pressure 2024-04-04 10:16:00.000 80 mm [Hg] Diastolic Blood Pressure 2024-04-02 10:05:00.000 55 mm [Hg] Diastolic Blood Pressure 2024-03-28 10:24:00.000 55 mm [Hg] Diastolic Blood Pressure 2024-03-26 10:10:00.000 57 mm [Hg] Plan of Treatment Planned Activity Planned Date Details Comments Future Scheduled Test SKILLED NU RSE TO EVALUATE PATIENT, IDENTIFY PRIMARY AND CO-MORBID CONDITIONS CODED PER CODING GUIDELINES, AND DEVELOP PATIENT SPECIFIC PLAN OF CARE THAT INCLUDES PATIENT GOAL FOR HOME HEALTH. [code = SKILLED NURSE TO EVALUATE PATIENT, IDENTIFY PRIMARY AND CO-MORBID CONDITIONS CODED PER CODING GUIDELINES, AND DEVELOP PATIENT SPECIFIC PLAN OF CARE THAT INCLUDES PATIENT GOAL FOR HOME HEALTH.] Future Scheduled Test SKILLED NU RSE TO O/A OF PATIENTS MENTAL/BEHAVIORAL STATUS, ASSESS VITAL SIGNS 2WK8 ALLOW 2 PRNS FOR MEDICATION MANAGEMENT. [code = SKILLED NURSE TO O/A OF PATIENTS MENTAL/BEHAVIORAL STATUS, ASSESS VITAL SIGNS 2WK8 ALLOW 2 PRNS FOR MEDICATION MANAGEMENT.] Future Scheduled Test SKILLED NU RSE FOR O/A OF ALTERED THOUGHT PROCESS AND/OR DISRUPTION IN COGNITIVE OPERATIONS AND ACTIVITIES [code = SKILLED NURSE FOR O/A OF ALTERED THOUGHT PROCESS AND/OR DISRUPTION IN COGNITIVE OPERATIONS AND ACTIVITIES ] Future Scheduled Test SKILLED NU RSE FOR O/A OF GENERAL HEALTH STATUS OF PAIN, CARDIAC, RESPIRATORY, GASTROINTESTINAL, GENITOURINARY, SKIN, NEUROLOGIC, ENDOCRINE SYSTEMS TO IDENTIFY CHANGES ASSOCIATED WITH EXACERBATION FOR EARLY INTERVENTION OF COMPLICATIONS 2WK8 [code = SKILLED NURSE FOR O/A OF GENERAL HEALTH STATUS OF PAIN, CARDIAC, RESPIRATORY, GASTROINTESTINAL, GENITOURINARY, SKIN, NEUROLOGIC, ENDOCRINE SYSTEMS TO IDENTIFY CHANGES ASSOCIATED WITH EXACERBATION FOR EARLY INTERVENTION OF COMPLICATIONS 2WK8 ] Future Scheduled Test SKILLED NU RSE FOR O/A AND SKILLED TEACHING RELATED TO MANAGEMENT OF DEPRESSIVE SYMPTOMS AND/OR DEPRESSION. SN TO REPORT SIGNIFICANT CHANGE IN DEPRESSIVE SYMPTOMS TO CLINICAL PROVIDER FOR EARLY INTERVENTION. [code = SKILLED NURSE FOR O/A AND SKILLED TEACHING RELATED TO MANAGEMENT OF DEPRESSIVE SYMPTOMS AND/OR DEPRESSION. SN TO REPORT SIGNIFICANT CHANGE IN DEPRESSIVE SYMPTOMS TO CLINICAL PROVIDER FOR EARLY INTERVENTION.] Future Scheduled Test SKILLED NU RSE FOR O/A AND TEACHING OF DIABETIC MANAGEMENT INCLUDING BLOOD SUGAR MONITORING/USE OF GLUCOMETER, DIABETIC DIET, LOWER EXTREMITY SKIN INSPECTION, PROPER SKIN/FOOT CARE, AND SIGNS AND SYMPTOMS HYPO/HYPERGLYCEMIA TO REPORT. [code = SKILLED NURSE FOR O/A AND TEACHING OF DIABETIC MANAGEMENT INCLUDING BLOOD SUGAR MONITORING/USE OF GLUCOMETER, DIABETIC DIET, LOWER EXTREMITY SKIN INSPECTION, PROPER SKIN/FOOT CARE, AND SIGNS AND SYMPTOMS HYPO/HYPERGLYCEMIA TO REPORT.] Future Scheduled Test SKILLED NU RSE TO INSTRUCT PATIENT/CAREGIVER ON SIGNS AND SYMPTOMS AND METHODS TO MANAGE PARKINSON'S DISEASE PROGRESSION. [code = SKILLED NURSE TO INSTRUCT PATIENT/CAREGIVER ON SIGNS AND SYMPTOMS AND METHODS TO MANAGE PARKINSON'S DISEASE PROGRESSION.] Future Scheduled Test SKILLED NU RSE TO PERFORM HOME SAFETY AND FALL ASSESSMENT AND PROVIDE INSTRUCTION TO IMPLEMENT HOME SAFETY AND FALL PREVENTION STRATEGIES. [code = SKILLED NURSE TO PERFORM HOME SAFETY AND FALL ASSESSMENT AND PROVIDE INSTRUCTION TO IMPLEMENT HOME SAFETY AND FALL PREVENTION STRATEGIES.] Future Scheduled Test SKILLED NU RSE FOR OBSERVATION AND ASSESSMENT OF PATIENTS PAIN LEVEL AND EFFECTIVENESS OF PAIN MANAGEMENT REGIMEN. SKILLED NURSE TO INSTRUCT PATIENT/CAREGIVER REGARDING PHARMACOLOGIC AND NON-PHARMACOLOGIC PAIN CONTROL MEASURES. SKILLED NURSE TO REPORT TO PHYSICIAN IF PAIN IS UNCONTROLLED WITH CURRENT PAIN MANAGEMENT REGIMEN. [code = SKILLED NURSE FOR OBSERVATION AND ASSESSMENT OF PATIENTS PAIN LEVEL AND EFFECTIVENESS OF PAIN MANAGEMENT REGIMEN. SKILLED NURSE TO INSTRUCT PATIENT/CAREGIVER REGARDING PHARMACOLOGIC AND NON-PHARMACOLOGIC PAIN CONTROL MEASURES. SKILLED NURSE TO REPORT TO PHYSICIAN IF PAIN IS UNCONTROLLED WITH CURRENT PAIN MANAGEMENT REGIMEN.] Future Scheduled Test SKILLED NU RSE FOR O/A, TEACHING AND MANAGEMENT OF ESRD FOR EARLY IDENTIFICATION OF EXACERBATION OF DISEASE PROCESS [code = SKILLED NURSE FOR O/A, TEACHING AND MANAGEMENT OF ESRD FOR EARLY IDENTIFICATION OF EXACERBATION OF DISEASE PROCESS] Future Scheduled Test SKILLED NU RSE TO REVIEW PATIENT MEDICATIONS. INSTRUCT PATIENT/CAREGIVER ON MONITORING OF EFFECTIVENESS, ADVERSE DRUG REACTIONS, SIDE EFFECTS OF ALL MEDICATIONS (PRESCRIPTION/-OTC), AND HOW AND WHEN TO REPORT PROBLEMS. [code = SKILLED NURSE TO REVIEW PATIENT MEDICATIONS. INSTRUCT PATIENT/CAREGIVER ON MONITORING OF EFFECTIVENESS, ADVERSE DRUG REACTIONS, SIDE EFFECTS OF ALL MEDICATIONS (PRESCRIPTION/-OTC), AND HOW AND WHEN TO REPORT PROBLEMS.] Future Scheduled Test SKILLED NU RSE FOR O/A OF MUSCULOSKELETAL STATUS AND TEACHING ON MEASURES TO MANAGE STABILITY AND TO MAINTAIN SAFETY WITH ACTIVITY [code = SKILLED NURSE FOR O/A OF MUSCULOSKELETAL STATUS AND TEACHING ON MEASURES TO MANAGE STABILITY AND TO MAINTAIN SAFETY WITH ACTIVITY] Future Scheduled Test SKILLED NU RSE TO ASSESS PATIENTS PSYCHOSOCIAL STATUS TO IDENTIFY POTENTIAL ISSUES THAT MAY COMPLICATE THE PROVISION OF THE PLAN OF CARE INCLUDING THE PATIENTS ABILITY TO ACCESS COMMUNITY RESOURCES AND PSYCHOSOCIAL SUPPORT SERVICES. [code = SKILLED NURSE TO ASSESS PATIENTS PSYCHOSOCIAL STATUS TO IDENTIFY POTENTIAL ISSUES THAT MAY COMPLICATE THE PROVISION OF THE PLAN OF CARE INCLUDING THE PATIENTS ABILITY TO ACCESS COMMUNITY RESOURCES AND PSYCHOSOCIAL SUPPORT SERVICES.] Future Scheduled Test SN TO INST RUCT CAREGIVER ON MANAGEMENT OF DEMENTIA UTILIZING THE [facility]UL CARE SPECIALTY PROGRAM. [code = SN TO INSTRUCT CAREGIVER ON MANAGEMENT OF DEMENTIA UTILIZING THE [facility]ING[facility] CARE SPECIALTY PROGRAM.] Future Scheduled Test SKILLED NU RSE WILL MAINTAIN SITUATIONAL AWARENESS FOR SAFETY AND WILL NOTIFY CLINICAL TENNIS PROFESSIONAL AND PHYSICIAN/PROVIDER WITH ANY CHANGE IN CONDITION. [code = SKILLED NURSE WILL MAINTAIN SITUATIONAL AWARENESS FOR SAFETY AND WILL NOTIFY CLINICAL TENNIS PROFESSIONAL AND PHYSICIAN/PROVIDER WITH ANY CHANGE IN CONDITION.] Goal 2022-09-27 Patient Goal - T O INCREASED STAMINA AND ENDURANCE Goal 2022-11-26 Patient Goal - T O INCREASED STAMINA AND ENDURANCE Goal 2023-01-26 Patient Goal - T O INCREASED STAMINA AND ENDURANCE Goal 2023-03-25 Patient Goal - T O INCREASED STAMINA AND ENDURANCE Goal 2023-05-25 Patient Goal - T O INCREASED STAMINA AND ENDURANCE Goal 2023-07-25 Patient Goal - T O INCREASED STAMINA AND ENDURANCE Goal 2023-09-21 Patient Goal - T O INCREASED STAMINA AND ENDURANCE Goal 2023-11-23 Patient Goal - T O INCREASED STAMINA AND ENDURANCE Goal 2024-01-20 Patient Goal - T O INCREASED STAMINA AND ENDURANCE Goal 2024-03-19 Patient Goal - T O INCREASED STAMINA AND ENDURANCE Goal 2024-04-04 Patient Goal - T O INCREASED STAMINA AND ENDURANCE Goal Provider Goal - A PLAN OF CARE WILL BE ESTABLISHED THAT MEETS PATIENT'S LONG-TERM NEEDS AND INCLUDES PATIENT GOAL FOR HOME HEALTH. Goal Provider Goal - ALTERED MENTAL/BEHAVIORAL STATUS WILL BE IDENTIFIED PROMPTLY AND INTERVENTION INITIATED QUICKLY TO MINIMIZE ASSOCIATED RISKS THROUGHOUT CERTIFICATION PERIOD. Goal Provider Goal - PATIENT WILL BE ABLE TO PERFORM DAILY FUNCTIONS AND HAVE OPTIMAL IMPROVEMENT IN THOUGHT PROCESS THROUGHOUT CERTIFICATION PERIOD. Goal Provider Goal - CHANGE IN GENERAL HEALTH STATUS WILL BE IDENTIFIED AND REPORTED TO PHYSICIAN FOR PROMPT INTERVENTION TO MINIMIZE ASSOCIATED RISKS THROUGHOUT CERTIFICATION PERIOD. Goal Provider Goal - PATIENT WILL REMAIN SAFE WITHOUT DECOMPENSATION IN DEPRESSIVE CONDITION, WHILE MAINTAINING OPTIMAL LEVEL OF MENTAL HEALTH AND WELL BEING THROUGHOUT CERTIFICATION PERIOD. Goal Provider Goal - PATIENT/CAREGIVER WILL VERBALIZE/DEMONSTRATE KNOWLEDGE OF DIABETIC MANAGEMENT. CHANGES IN DIABETIC STATUS WILL BE IDENTIFIED AND REPORTED TO PHYSICIAN FOR PROMPT INTERVENTION THROUGHOUT THE CERTIFICATION PERIOD. Goal Provider Goal - PATIENT/CAREGIVER WILL VERBALIZE SIGNS AND SYMPTOMS OF PARKINSON'S DISEASE AND DEMONSTRATE METHODS TO MANAGE DISEASE PROCESS BY END OF CERTIFICATION PERIOD. Goal Provider Goal - PATIENT/CAREGIVER WILL VERBALIZE/DEMONSTRATE EFFECTIVE HOME SAFETY AND FALL PREVENTION STRATEGIES THROUGHOUT CERTIFICATION PERIOD. Goal Provider Goal - PATIENT/CAREGIVER WILL DEMONSTRATE UNDERSTANDING OF PHARMACOLOGIC AND NONPHARMACOLOGIC PAIN CONTROL MEASURES AND PATIENT WILL HAVE IMPROVEMENT IN PAIN INTERFERING WITH ACTIVITY EVIDENCED BY PAIN CONTROLLED AT LEVEL OF 7 OR LESS BY END OF CERTIFICATION PERIOD. Goal Provider Goal - PATIENT/CAREGIVER WILL VERBALIZE UNDERSTANDING OF ESRD GENITOURINARY DISEASE PROCESS, AND EXACERBATIONS OF GENITOURINARY DISEASE WILL BE PROMPTLY IDENTIFIED FOR EARLY INTERVENTION THROUGHOUT THE CERTIFICATION PERIOD. Goal Provider Goal - PATIENT/CAREGIVER WILL VERBALIZE UNDERSTANDING OF EDUCATION PROVIDED ON MEDICATIONS BY THE END OF THE CERTIFICATION PERIOD. Goal Provider Goal - PATIENT/CAREGIVER WILL VERBALIZE/DEMONSTRATE ABILITY TO MANAGE STABILITY MUSCULOSKELETAL DISEASE WHILE MAINTAINING SAFETY THROUGHOUT THE EPISODE. Goal Provider Goal - PSYCHOSOCIAL NEEDS WILL BE IDENTIFIED AND PLAN IMPLEMENTED TO MINIMIZE RISK THROUGHOUT CERTIFICATION PERIOD. Goal Provider Goal - CAREGIVER WILL DEMONSTRATE MANAGEMENT AND UNDERSTANDING OF DEMENTIA A RESULT OF PARTICIPATION IN THE [facility] CARE SPECIALTY PROGRAM. Goal Provider Goal - PATIENT WILL REMAIN SAFE IN THE COMMUNITY AND WILL BE FREE OF DANGER TO SELF AND OTHERS THROUGHOUT THE CERTIFICATION PERIOD. Reason for Visit INDEPENDENT IN THE HOME Encounters Start Date/Time End Date/Time Encounter Type Admission Type Attending [facility] Care Department Encounter ID Discharge Date Discharge Status Discharge Condition Discharge Reason Percent Goals Met 2022-08-02 00:00:00 2024-04-04 00:00:00 Outpatient RECERTIFIC SHARMAINE GALLARDO [facility] [id number] 2024-04-04 00:00:00 DISCHARGE TO HOME OR SELF CARE INDEPENDEN T IN THE HOME LACK OF AUTHORIZAT ION 100.00
--- OUTSIDE RECORDS SUMMARY | 2024-06-12 15:43 | XMS_ITS | Continuity of Care Document ---
Author Organization [facility] Address [address] [place] [address]- Care Team Providers Care Machinist Mate Name Role Phone June ZUNIGA, Eliseo Murphy Primary Care Physician [phone] Encounter [facility] Date(s): 04/25/24 - 05/25/[address] [address] Encounter Type: Triage Allergies, Adverse Reactions, Alerts Substance Criticality Severity [...] (oldterm) 11 04/03/08 Give n 1Location History: [facility] 2Admin Note: VIS dated 11/29/11 3Admin Note: VIS GIVEN 4Result Comment: [08/01/2013] Given by Buddy Velasco 5Admin Note: vis 12/25/06 6Admin Note: VIS GIVEN [id number] 7Admin Note: VIS GIVEN 01/07/2009 8Admin Note: VIS 12/12/2006 9Admin Note: vis 11/06/93 10Admin Note: VIS GIVEN 02/28/2009 11Admin Note: VIS [id number] Problem List Condition Confirmation Course Effective Dates Status H ealth Status Informant Anemia Confirmed Active Dementia Confirmed Active Dyslipidemia Confirmed Active ESRD (end stage renal disease) Confirmed Active GERD without esophagitis Confirmed Active H/O GI bleed Confirmed Active Heart failure with preserved ejection fraction Confirmed Active Hyperkalemia Confirmed Active Hypertension Confirmed Active Non-Afghan speaking patient Confirmed Active Mammographic Microcalcification, right breast Confirmed 05/12/10 Active Obstructive sleep apnea syndrome Confirmed Active Parkinsons disease 1 Confirmed Active *[id number] [facility] Confirmed Active Postmenopausal bleeding Confirmed Active Remote history of stroke Confirmed Active Schizophrenia Confirmed Active Thrombocytopenia Confirmed Active Type 2 diabetes mellitus with renal manifestations Confirmed Active 1Last saw neuro 06/2020 Social History Social History Type Response Smoking Status Never smoker; Tobacc o user in household: No entered on: 10/22/14 Sex Sex Representation Female (finding) Patient Care team information Care Team Personnel Name: Shellie Gonzales RN Position: [facility] RN Member Role: Primary Care Nurse Name: Michael Duenas NP Position: [facility] Associate Professional Member Role: Lifetime Consulting Provider Address: [address] [place] [address]- Telecom: Name: Lina Lin RN Position: [facility] RN Supv Member Role: Primary Care Nurse Name: Lilian Amin RN Position: [facility] ED RN W/OE and Tasks Member Role: Primary Care Nurse Name: Rand Hunt RN Position: [facility] RN Member Role: Primary Care Nurse Name: Mary Cantu RN Position: [facility] RN Member Role: Primary Care Nurse Name: Michelle Seo RN Position: [facility] RN Member Role: Primary Care Nurse Name: May Carrillo RN Position: [facility] AMB Nurse Member Role: Primary Care Nurse Name: Elvia Marc RN Position: [facility] RN Member Role: Primary Care Nurse Name: Theresa Crowder Position: [facility] Outreach Member Role: Lifetime Consulting Physician Name: Liza Bailey RN Position: [facility] RN Member Role: Primary Care Nurse Name: Ofe Hunt RN Position: [facility] Onco RN Member Role: Primary Care Nurse Name: Karla Galloway RN Position: [facility] OB RN Member Role: Primary Care Nurse Name: Zaira Gooden RN Position: [facility] RN Member Role: Primary Care Nurse Name: Mercy Rasmussen RN Position: [facility] RN Member Role: Primary Care Nurse Name: Jaclyn Clark RN Position: [facility] RN Member Role: Primary Care Nurse Name: Jane Doe NP Position: [facility] Associate Professional Member Role: Lifetime Consulting Provider Address: [address] [place] [address] [address] [facility] [place] [address]- Telecom: Name: Tay Wills MD Position: [facility] Renal MD Member Role: Lifetime Consulting Physician Address: [address] [place] [address] [address] [facility] [place] [address]- Telecom: Name: Jazmín Carrillo RN Position: S RN Member Role: Primary Care Nurse Name: Rosa Mata RN Position: [facility] RN Member Role: Primary Care Nurse Name: Sybil Swan RN Position: [facility] RN Member Role: Primary Care Nurse Name: Gonzalo Call RN Position: [facility] ED RN W/OE and Tasks Member Role: Primary Care Nurse Name: No Ayala RN Position: [facility] RN Member Role: Primary Care Nurse Name: Sarita Gaxiola RN Position: [facility] RN Member Role: Primary Care Nurse Name: Alvarez Larose DO Position: [facility] Renal MD Member Role: Lifetime Consulting Physician Address: [address] [facility] [address] [facility] [place] [address]- Telecom: Name: Moni Gracia RN Position: [facility] RN Member Role: Primary Care Nurse Name: Chevy Burnett III, RN Position: [facility] RN Member Role: Primary Care Nurse Name: Mildred Kaur RN Position: [facility] RN Member Role: Primary Care Nurse Name: Rosa Nieto RN Position: [facility] RN Member Role: Primary Care Nurse Name: Abi Schwartz RN Position: [facility] RN Member Role: Primary Care Nurse Name: Patito Cano RN Position: [facility] AMB Nurse Member Role: Primary Care Nurse Name: Chyna Cedeno RN Position: [facility] AMB Nurse Member Role: Primary Care Nurse Name: Kae Sheldon RN Position: [facility] RN Member Role: Primary Care Nurse Name: Ginger Laguna RN Position: [facility] RN Member Role: Primary Care Nurse Name: Eliseo Watkins MD Position: [facility] Physician - Primary Care Member Role: PCP Address: [place] [address]- Telecom: Name: Yuli Barahona RN Position: [facility] RN Member Role: Primary Care Nurse Name: Abena Gates RN Position: [facility] RN Member Role: Primary Care Nurse Name: Clark Walton RN Position: [facility] ED RN W/OE and Tasks Member Role: Primary Care Nurse Name: Carine Pacheco RN Position: [facility] RN Member Role: Primary Care Nurse Name: Nakul Todd RN Position: [facility] RN Member Role: Primary Care Nurse Name: Macey Dalal RN Position: [facility] RN Member Role: Primary Care Nurse Name: Rachel Dove RN Position: [facility] RN Member Role: Primary Care Nurse Name: Fox Washington RN Position: [facility] RN Member Role: Primary Care Nurse Name: Edith Fisher RN Position: [facility] RN Member Role: Primary Care Nurse Name: Merissa Quevedo RN Position: [facility] RN Member Role: Primary Care Nurse Name: Rufino Silva MD Position: [facility] Renal MD Member Role: Lifetime Consulting Physician Address: [address] [place] [address] [facility] [address] Telecom: Care Team Related Persons Name: ANNEMARIE TA Name: ANNEMARIE TA SON IN LAW Name: RL TA Name: DELIA MORRELL Insurance Providers Guarantor name: SILVIA LOZANO Health Plan Information #: 1 Payer: NA Member Number: RICHARD Policy Number: NA Group Number: [id number]
--- OUTSIDE RECORDS SUMMARY | 2024-06-12 15:43 | XMS_ITS | Data Portability ---
Author Organization [employer], [employer] Address [address] [place] [id number] Care Team Providers Care Sales Recruiter Name Role Phone HIM CCA OTHER Assessment Encounter Date Assessment Date Assessment LastModified by Organization Details LastModified Time 03/22/2023 03/22/2023 Pt with history of dementia and ESRD on HD qMWF. Per pt's daughter, pt has seemed more confused over the last several weeks. Recently the daughter has noted intermittent wheezing sound with the pt's breathing. There has been no SOB. No recent cough, fevers or nasal congestion/rhinor benita. Pt has been getting anxious while on dialysis recently and has not been able to complete her dialysis sessions d/t feeling anxious, although the daughter reports she completed > 1/2 of her session yesterday. On exam, pt alert, no distress. Vitals including O2 sat normal. Lungs clear, no wheezing. Pt intermittently makes a high pitched sound when she breathes out forcefully. Impression: Pt with history as noted including dementia and ESRD on HD, with reported intermittent audible wheezing with breathing. The medic reports no current wheezing or stridor on exam, although according to the medic, the pt will intermittently make a high pitched breathing sound when she breathes out forcefully. Lungs clear with normal vitals. Etiology of the pt's symptoms not clear, but given her normal exam currently and with no current symptoms, no further evaluation is indicated at this time. This is d/w the pt's daughter by medic. Pt's daughter plans to go to dialysis with the pt tomorrow to ensure that completes her full session. Pt's daughter instructed to have pt seek medical attention right away with any worsening or new symptoms, which are reviewed with her. [email or web address] Not available 03/22/2023 11:29:03 03/30/2023 03/30/2023 Consent for treatment signed by daughter and uploaded due to dementia I provided real -time medical direction via phone for this encounter, and was available for additional phone based assistance as needed. I have reviewed and agree with the Assessment and Plan as documented by the Kick Plate Installer. Patient given the opportunity to ask questions. Advised to continue regular medications and continue her dialysis- if develops CP/severe SOB/turning blue/uncontrolled n/v/d or any black/bloody emesis or stool/ AMS/ syncope/ focal weakness /hi fever to call 911-daughter verbalized understanding of instructions to the medic. [email or web address] Not available 03/30/2023 12:59:31 02/26/2024 02/26/2024 I have reviewed and agree with the assessment and plan as documented by the scraper meat. I provided real-time medical direction for this encounter and was immediately available to provide additional phone-based assistance as needed. 79F dementia presenting after dropping object to left foot last night. Pt denies any pain presently. Able to move foot, ankle and walking without pain or difficulty. No significant swelling.. Mild bruising noted to lateral aspect of left foot. No pain to base of fifth or malleoli. Overall suspect mild soft tissue injury. Pt is scheduled to see PCP tomorrow, recommend ice, elevation and Tylenol as needed. Red flags discussed. [email or web address] Not available 02/26/2024 12:20:14 Plan of Treatment Reminders Order Date Submit Date Provider Last Modified By Organization Details Last Modified Time Details Appointments None recorded. Lab rapid SARS CoV 2 Ag, QL IA, respiratory specimen 2022 023 [email or web address] 0 [facility], [address] [place] [address], [id number], 3 13:17:16 BMP, serum or plasma 2022 023 [email or web address] 0 [facility], [address] [place] [address], [phone], 3 13:17:18 rapid SARS CoV 2 Ag, QL IA, respiratory specimen 2023 024 AMANDA [facility], [address] [place] [address], [id number], 4 09:36:03 rapid flu (A+B) 2023 024 AMANDA [facility], [address] [place] [address], [id number], 4 09:36:27 Referral None recorded. Procedures None recorded. Surgeries None recorded. Imaging electrocard iogram 2022 023 [email or web address] 0 [facility] - [address], [address], 3 13:18:15 Medication Orders Tessalon Perles 100 mg capsule 2023 024 AMANDA [facility], [address] [facility], [place], [address], 4 19:11:44 Patient TargetsNo targets recorded. Patient InstructionsNo instructions recorded. Reason for Referral None Reported. Results Created Date Observation Date Name Description Value Unit Range Abnormal Flag Note LastModifiedBy Organization Detail LastModifiedTime 03/30/2003/30/2023 BMP, serum or plasm a BUN 41 Not Available [facility] - [facility] [address], [address], 03/30/2023 12:57:38 03/30/20 23 03/30/2023 BMP, serum or plasm a Ca Ionize d calciu m 1.05 Not Available Main - [facility] [address], [address], 03/30/2023 12:57:38 03/30/2003/30/2023 BMP, serum or plasm a CI- 100 Not Available Main - [facility] [address], [address], 03/30/2023 12:57:38 03/30/20 23 03/30/2023 BMP, serum or plasm a CRE 6.8 Not Available Main - [facility] [address], [address], 03/30/2023 12:57:38 03/30/2003/30/2023 BMP, serum or plasm a GLU 394 Not Available [facility] - [facility] [address], [address], 03/30/2023 12:57:38 03/30/20 23 03/30/2023 BMP, serum or plasm a K+ 5.1( pre HD today) Not Available [facility] ed [address] [place] [address], [address], 03/30/2023 12:57:38 03/30/2003/30/2023 BMP, serum or plasm a Na+ 134 Not Available [facility] - [facility] [address], [address], 03/30/2023 12:57:38 03/30/20 23 03/30/2023 BMP, serum or plasm a tCO2 24 Not Available [facility] - [facility] [address], [address], 03/30/2023 12:57:38 03/30/20 23 03/30/2023 rapid SARS CoV 2 Ag, QL IA, respi rator y speci men rapid SARS CoV 2 Ag, QL IA, respiratory specimen negati ve Not Available [facility] ed [address] [place] [address], [address], 03/30/2023 12:57:30 03/30/20 23 03/30/2023 iveth lomeli am No observ ation record ed. [email or web address] [address], [address], 03/30/2023 13:18:14 Result Notes None recorded. Procedures Surgical History None recorded. Imaging Results Imaging Date Name Status LastModified by Organization Details LastModified Time 03/30/2023 electrocardiogram completed [email or web address], [address], 03/30/2023 13:18:14 Procedure Notes None recorded. Medical Equipment None Reported. Allergies Allergen ID Allergen Name Allergen Category Reaction Reaction Severity Criticality Documentation Date Start Date Code Code System Note Provider Name and Address Organization Details Recorded Time 3692 loratadin e medicatio n Not available Not available Not available 03/30/2023 86745 RxNorm Incre ased oscaru isis Esquivel MD [address] [facility],[address], [place], [address], [employer] 3 12:50:08 Medications Name Sig Start Date Stop Date Status Note LastModified by Organization Details LastModified Time delivery fee active Not Available Not Available Not Available multivitamin tablet active Not Available Not Available Not Available carvedilol 6.25 mg tablet active Not Available Not Available Not Available atorvastatin 20 mg tablet active Not Available Not Available Not Available carvedilol 12.5 mg tablet active Not Available Not Available Not Available trazodone 50 mg tablet TAKE 1/2 (HALF) TABLET BY MOUTH EVERY DAY AT BEDTIME NEEDED FOR SLEEP active Not Available Not Available No t Available azithromycin 250 mg tablet active Not Available Not Available Not Available FreeStyle Lancets 28 gauge active Not Available Not Available Not Available hydralazine 25 mg tablet active Not Available Not Available Not Available aspirin 81 mg tablet,delay ed release active Not Available Not Available N ot Available acetaminophe n 500 mg tablet active Not Available Not Available Not Available lidocaine-pr ilocaine 2.5 %-2.5 % topical cream active Not Available Not Available Not Available Tessalon Perles 100 mg capsule Take 1 capsule 3 times a day by oral route for 7 days. 2023 active Not Available Not Available Not Avai lable lorazepam 0.5 mg tablet active Not Available Not Available Not Available nifedipine ER 60 mg tablet,exten ded release 24 hr active Not Available Not Available Not Available Siltussin SA 100 mg/5 mL oral liquid active Not Available Not Available Not Available nifedipine ER 90 mg tablet,exten ded release 24 hr active Not Available Not Available Not Available amlodipine 10 mg tablet active Not Available Not Available Not Available pantoprazole 40 mg tablet,delay ed release active Not Available Not Available N ot Available fluoxetine 10 mg capsule active Not Available Not Available Not Available Vitamin D2 1,250 mcg (50,000 unit) capsule TAKE 1 CAPSULE BY MOUTH ONCE PER WEEK (WEEKLY) active Not Available Not Available No t Available carbidopa 25 mg-levodopa 100 mg tablet active Not Available Not Available Not Available fluticasone propionate 50 mcg/actuatio n nasal spray,suspen isis active Not Available Not Available Not Available doxycycline hyclate 100 mg tablet active Not Available Not Available No t Available ipratropium bromide 21 mcg (0.03 %) nasal spray active Not Available Not Available Not Available loratadine 10 mg tablet active Not Available Not Available Not Available risperidone 0.5 mg tablet active Not Available Not Available Not Available Ventolin HFA 90 mcg/actuatio n aerosol inhaler active Not Available Not Available Not Available Renal Caps 1 mg capsule TAKE 1 CAPSULE BY MOUTH ONCE A DAY active Not Available Not Available No t Available Alcohol Prep Pads active Not Available Not Available Not Available FreeStyle Lite Strips active Not Available Not Available Not Available Lantus Solostar U-100 Insulin 100 unit/mL (3 mL) subcutaneous pen active Not Available Not Available Not Available oseltamivir 30 mg capsule TOME 1 C PSULA POR V A ORAL IMMEDIATELY AFTER EACH HEMODIALYSI S SESSION FOR A TOTAL OF 5 DOSES active Not Available Not Available N ot Available diclofenac 1 % topical gel active Not Available Not Available Not Available melatonin 5 mg tablet active Not Available Not Available No t Available Artificial Tears ([id number] abdi-glyceri n) 1 %-0.2 %-0.2 % eye drops active Not Available Not Available Not Available Velphoro 500 mg chewable tablet CRUSH OR CHEW AND SWALLOW 2 TABLETS 3 TIMES A DAY WITH MEALS active Not Available Not Available N ot Available UltiCare Pen Needle 31 gauge x 3/16 active Not Available Not Available Not Available Vitals Date Recorded Oxygen saturation Oxygen saturation in Arterial blood by Pulse oximetry Body temperature Body height Respiratory rate Heart rate Body weight Systolic blood pressure Diastolic blood pressure Provider Name and Address Organization Details Last Updated DateTime 3 98 % 98 % 97.4 [degF] 152.4 cm 14 /min 74 /min 74045.8 g 152 mm[Hg] 90 mm[Hg] Not Available [facility] 3 10:55:49 Date Recorded Body temperature Respiratory rate Heart rate Oxygen saturation Oxygen saturation in Arterial blood by Pulse oximetry Systolic blood pressure Diastolic blood pressure Provider Name and Address Organization Details Last Updated DateTime 3 97.9 [degF] 20 /min 73 /min 99 % 99 % 140 mm[Hg] 70 mm[Hg] Not Available [facility] [employer] 3 11:29:18 Date Recorded Body temperature Respiratory rate Body height Heart rate Oxygen saturation Oxygen saturation in Arterial blood by Pulse oximetry Body weight Systolic blood pressure Diastolic blood pressure Provider Name and Address Organization Details Last Updated DateTime 4 97.4 [degF] 18 /min 157.48 cm 71 /min 98 % 98 % 48491.9 84 g 154 mm[Hg] 77 mm[Hg] Not Available [employer] [facility] [employer] 4 19:01:23 Date Recorded Oxygen saturation Oxygen saturation in Arterial blood by Pulse oximetry Heart rate Respiratory rate Body temperature Systolic blood pressure Diastolic blood pressure Provider Name and Address Organization Details Last Updated DateTime 4 98 % 98 % 66 /min 16 /min 97.3 [degF] 161 mm[Hg] 73 mm[Hg] Not Available [employer] [facility] [employer] 4 16:00:44 Date Recorded Oxygen saturation Oxygen saturation in Arterial blood by Pulse oximetry Body temperature Respiratory rate Heart rate Systolic blood pressure Diastolic blood pressure Provider Name and Address Organization Details Last Updated DateTime 4 97 % 97 % 98.4 [degF] 16 /min 62 /min 140 mm[Hg] 43 mm[Hg] Not Available [employer] 4 12:15:39 Social History None recorded. Functional Status None recorded. Mental Status None recorded. Family History Nothing Reported. Medical History No medical history recorded. Gynecological HistoryNo gynecological history recorded. Obstetrics History GPAL:G 0 P 0 0 0 0 Past Encounters Encounter ID Performer Location Encounter Start Date Encounter Closed Date Diagnosis/Indication Diagnosis SNOMED-CT Code Diagnosis ICD10 Code Diagnosis Note [id number] Alvarez Stewart MD [facility] - [facility] [address] [place] [phone] 06/06/2022 11:36:14 06/08/2022 11:05:37 COVID-19 [id number] U07.1 As noted, we were called to see this patient regarding concerns of COVID-19. Evaluation in the field was performed by my scraper meat colleague, as noted above, I provided real-time direction and supervisio n for this visit. The evaluation revealed a well-appea ring patient with reassuring vital signs and only some junky upper lung sanabria sounds more c/w large airway secretions . She is fully vaccinated (4x). She has ESRD on HD. She is eating and drinking normally. Impression : 77 yoF with COVID-19 with full vaccinatio n and mild symptoms not suggestive of high-grade viremia, SIRS response, or other worrisome signs. She is not a candidate for paxlovid due to ESRD. Plan: Given her well appearance and her treatment- limiting condition, we favor supportive care and monitoring . Lack of fever is reassuring , as this is a good proxy for high viral load, though of course she might not mount a fever given age and ESRD. Since she cannot receive paxlovid and remdesivir is also not labeled for ESRD. Primary care, consider check-in call or virtual visit within the next 2 days. Dispositio n: We discussed the diagnostic uncertaint y of home visits and the risk associated with this. In this case, the patient and I felt this to be an acceptable and reasonable amount of risk given the benefit of avoiding an ED visit. We discussed the need to seek care urgently/e mergently in the setting of any new or worsening serious symptoms, particular ly high fever, trouble breathing, or mental status changes. [id number] Luis F Kraus MD Main - [facility] [address] [place] [phone] 09/02/2022 19:17:00 09/06/2022 09:53:13 Near syncope [id number] R55 This 77-year-ol d female had an episode of near syncope where she lowered herself to a chair with no trauma. Her vital signs were stable. I recommende d that she follow-up with her PCP. The patient agreed with this plan. [id number] Wally Cordova MD Main - [facility] [address] [place] [phone] 03/22/2023 10:55:47 03/22/2023 22:33:42 Wheezing symptom [id number] R06.2 [id number] Chelle Thomas MD Main - [facility] [address] [place] [phone] 03/30/2023 11:29:15 03/30/2023 22:18:17 Altered mental status 205414972 R41.82 This may be a gradual decline of her dementia compounded by poor sleep at night and hyperglyce fernando.I advised the daughter to discuss with her PCP adjusting her insulin to cover for higher evening sugars-the hyperglyce fernando could be contributi ng somewhat to her fatigue. I have no recent old labs but the daughter reports she does have a history of anemia. We explained to the daughter that diabetics sometimes have silent MIs which could manifest itself as breathing difficulty -I have no recent old EKGs and explained there are some minor abnormalit ies to her EKG-I do not feel her presentati on warrants rushing her to the emergency room but close follow-up with her PCP and neurologis t are advised as further work-up is beyond the scope of our service- and she should follow-up with the PCP today/advi sed phone call and keep her appointmen t on Tuesday-if the patient worsens to call 911 as per red flags. She verbalized understand ing to the medic Clark Murdock MD [facility] - [facility] [address] [place] [phone] 07/28/2023 18:46:26 07/28/2023 22:46:45 Viral upper respiratory tract infection [id number] J06.9 COVID/flu negative. Stable vital signs. S/s consistent with viral illness. Will rx Tessalon pearls. Discusssed red flag signs for which to seek higher level of care. [id number] Chela Ware MD Main - [facility] [address] [place] [phone] 12/20/2023 16:00:19 12/20/2023 21:49:26 Fall W19.XXXA 78 year old female being evaluated after a mechanical fall from height after her foot got caught in the couch. Patient reports hurting her knee and forehead near left eyebrow, without LOC, headache, nausea/vom iting or dizziness. Patient is not on anticoagul ation. Exam notable for normal vital signs, small contusion over left knee and left frontal forehead over eyebrow. Presentati on consistent with mechanical fall leading to minor injuries not requiring additional evaluation in hospital at this time, patient safe to remain home in the care of family. I have reviewed and agree with the assessment and plan as documented by the scraper meat. I provided real-time medical direction for this encounter and was immediatel y available to provide additional phone-base d assistance as needed. We discussed the diagnostic uncertaint y of home visits and associated risks. We discussed the need to seek care urgently/e mergently in the setting of any new or worsening symptoms. [id number] Mariposa Jimenez MD [facility] - [facility] [address] [place] [phone] 02/26/2024 12:15:29 02/27/2024 08:50:34 Injury of left foot [id number] S99.922A Health Concerns Section Related Observation LastModified by Organization Detai ls LastModified Time None Recorded Concern Status LastModified by Organization Details LastModified Time None Recorded Advance Directives Directive None Recorded Payers Encounter Date Sequence Insurance Name Policy Number Policy Gill Covered Member ID Gill Member ID Guarantor Name 03/22/2023 1 [facility] - DOS ON OR AFTER 2022 - DUAL ELIGIBLE - HALF-WAY OPTIONS AND ONE CARE (MEDICARE REPLACEMENT/AD VANTAGE - HMO) Evie Arguinzoni [id number] Evie Arguinzoni 03/30/2023 1 [employer] ALLIANCE - DOS ON OR AFTER 2022 - DUAL ELIGIBLE - HALF-WAY OPTIONS AND ONE CARE (MEDICARE REPLACEMENT/AD VANTAGE - HMO) Evie Arguinzoni [id number] Evie Arguinzoni 07/28/2023 1 [employer] CARE ALLIANCE - DOS ON OR AFTER 2022 - DUAL ELIGIBLE - HALF-WAY OPTIONS AND ONE CARE (MEDICARE REPLACEMENT/AD VANTAGE - HMO) Evie Arguinzoni [id number] Evie Arguinzoni 12/20/2023 1 [employer] CARE ALLIANCE - DOS ON OR AFTER 2022 - DUAL ELIGIBLE - HALF-WAY OPTIONS AND ONE CARE (MEDICARE REPLACEMENT/AD VANTAGE - HMO) Evie Arguinzoni [id number] Evie Arguinzoni 02/26/2024 1 [employer] CARE ALLIANCE - DOS ON OR AFTER 2022 - DUAL ELIGIBLE - HALF-WAY OPTIONS AND ONE CARE (MEDICARE REPLACEMENT/AD VANTAGE - HMO) Evie Arguinzoni [id number] Evie Arguinzoni Notes Date Note Type Note Provider Name and Address Organization Details Recorded Time 03/22/2023 text/html This was a super vised home visit with scraper meat Gerry Rose. HPI: Member's daughter Mansi called [facility], states member is a dialysis patient. Member has not been able to complete full h/d treatments in the past week, d/t anxiety. However, per MD Mansi informed her, labs are ok. Today member has abnormal lung sounds. Denies, sob, cough, fever. Mansi is requesting home visit to evaluate lungs. Member has hx, dementia with behavior disturbance, DM II, Parkinson's, ZARA, stage 5 kidney disease, hemiplegia following CVA. Per Mansi vss, t. 95.5, spo2 95% on r/a at rest b/p 154/76, hr 77 ....................... ....................... ....................... ....................... ....................... ....................... ... CRC Nursing Assessment: Comments: CRC RN did not require any additional information to process this visit. ....................... ....................... ....................... ....................... ....................... ....................... ... Kick Plate Installer Note From Gerry Rose: Patient alert and standing. Patient confused at baseline per caregiver. Caregiver called due to wheezing. Patient denies complaints at this time. Patient pink, warm and dry lung sounds clear negative increased work of breathing. Patient appears to make stridor like noise with upper airway at will. [facility] recommends monitoring patient for return of symptoms. Advised pt to attend next dialysis appt. Red flags and pt education discussed. ....................... ....................... ....................... ....................... ....................... ....................... ... Disposition: Judah Cordova MD [address] [facility],[address] [facility], [place], [address], [employer] 03/22/2023 11:29:30 03/30/2023 text/html HPI: Members daughter called stating that for about 5 days the member has been making loud sounds while she sleeps at night and difficulty breathing. Member wears CPAP at night per family but has not recently d/t her difficulty sleeping. Family states that member is a poor historian d/t dementia but member states that she has a hard time breathing. Denies CP and no fevers per family. Last week member was seen by scraper meat d/t breathing difficulty. Member is at her baseline mental status. Family states that mbrs O2 saturation is 98% on room air. Member has dialysis appointment at 3PM today. Family told dialysis staff her concerns about members breathing at last appointment and they stated that it was anxiety. Refusing ER at this time and would like to be seen in the home. PMH: includes anemia, DM2, severe dementia, parkinsons, ZARA, ? Primary insomnia, Hypertensive chronic kidney disease with stage 5 chronic kidney disease or end stage renal disease, GERD, ? Severe episode of recurrent major depressive disorder, with psychotic features, PTSD ....................... ....................... ....................... ....................... ....................... ....................... ... [facility] Nursing Assessment: Comments: Reviewed - Christin VILLA SEG: As above. Patient also has a history of anemia per daughter which is normal for end-stage renal failure patients. She gets dialysis Tuesday, Tuesday, Tuesday -due for dialysis this afternoon. 1 month ago they shortened her HD runs from 4 to 3 hours because she was not tolerating the longer runs. She recently saw her neurologist. No new med changes and she was not having the increased confusion and increased sleepiness than nor breathing difficulties /patient has not been tolerating her CPAP so she is not sleeping well at night which could be contributing to her fatigue. The other issue her blood sugar was 127 this morning and per the daughter she was 3-400 in the afternoons and evenings she is on Lantus 7 units nightly only. She had unsweetened oatmeal with apples this morning.. No fever, sweats, known sick contacts. No nausea vomiting diarrhea............... ....................... ....................... ....................... ....................... ....................... ............ Kick Plate Installer Note From Eli Barajas: Community Kick Plate Installer Darby Barajas CCA1 dispatched to a [facility] for a 78 yof C/O fatigued breathing. Upon arrival, the pt was sitting on the couch, awake and alert, oriented to baseline per daughter/personalized living manager nurse. The pt's daughter reported hx of kidney failure w/ MWF dialysis, parkinsons/dementia, and diabetes. She reported that the pt was sleepy at baseline, but that she appeared especially fatigued the past few days, and appeared to have abnormal RR. She stated the pt was not tolerating her CPAP at night, which typically happened when she was ill. She denied the pt missing any dialysis appts, but reported her dialysis was shortened from 4 hrs to 3 hrs 1 month prior due to the pt not tolerating it well (anxiety/agitation). She stated the pt was acting like her normal self at baseline, and was able to follow commands and answer simple questions. She reported an expiratory wheeze at times, and the pt coughing intermittently. RR normal, lung sounds clear throughout; pt expressed fatigue in somewhat shallow RR and slightly irregular respiratory rhythm. Covid negative. Pt denied any complaints when asked multiple times. Skin warm pink and dry. PERRL. Airway open and patent, free of swelling or fluids. NO JVD or tracheal deviation. Equal bilateral chest rise. No findings on abd exam. Pelvis intact. No unilateral weakness, slurred speech, or arm drift. No pedal edema. No weight changes at dialysis. [facility] consulted; EKG and BMP obtained-results in insted. Pt and her daughter were reassured that the pt was medically stable at that time, and that the ED was not needed. The pt's blood sugar mgmt was discussed, as well as her EKG abnormalities. Pt's daughter verbalized understanding. She stated [facility] visited 3X a week, and that the pt was also monitored at dialysis. She was instructed to call the pt's PCP and Neurologist MANUEL, and red flags were discussed at length. ....................... ....................... ....................... ....................... ....................... ....................... ... Disposition: Fulfilled Chelle Thomas MD [address] [facility],[address], [place], [id number], [employer] 03/30/2023 13:18:47 07/28/2023 text/html CRC Nurse Triage Notes (Aimee Christine): Reason For Request: URI Chief Complaints: URI PMH: Diabetes, Severe Dementia, Other Allergies: Unknown Comments: Verified address/ Identity / Member is a 78 yr old female, Members daughter calling in for member with URI Member has c/o running nose and coughing for a few days. Member has a h/o dementia . Member has a h/o HD M/W/F . Member does not verbalize symptoms well due to dementia. Member has been given cough medicine and nasal spray. Member does not have fever/ chills 97.1. . / o2 96. Member has been eating and breathing well. BP 120/43 Pulse 59 ....................... ....................... ....................... ....................... ....................... ....................... ... Kick Plate Installer Note From Teodoro Pichardo: [facility] visit for elderly female with cold symptoms. Arrived to home where patient was sitting on couch in company of her daughter. Pt is [place] speaking only with dementia so daughter spoke for her. Daughter reports 2 days of cough, congestion, and runny nose. Fevers and shortness of breath denied. Daughter concerned cough is keeping him up and has been giving dextromethorphan and guafenisen. Vital signs taken and WNL. Pt afebrile. Lung sounds auscultated and clear and equal bilaterally. POC flu and covid swabs run and both negative. Consulted with [facility] Dr. Murdock who prescribed tessalon pearls for the cough. No other acute treatments recommended at this time. Reviewed red flags for ED. Patient education provided. [facility] Lab Orders: rapid SARS CoV 2 Ag, QL IA, respiratory specimen: Performed rapid flu (A+B): Performed ....................... ....................... ....................... ....................... ....................... ....................... ... Disposition: Fulfilled Clark Murdock MD [address] [place] [address],[address], [place], [address], [employer] 07/28/2023 22:32:37 12/20/2023 text/html HPI: *Mani has two appts on 12/19 at 10am (SW and nurse appt) and 1pm dentist appt. Daughter thinks mani will home after 2:30-3pm. Please call before going.* Mani's daughter/ HCP Mansi reports this 78 y.o. F fell off the sofa when her foot got caught while trying to stand. Fall occurred around 8:45 pm tonight, from couch level onto her L knee, then her left side and hit the area above her L eye, around eyebrow. No LOC. Her skin was not broken anywhere and per daughter, there is minimal swelling and bruising near L knee and L eyebrow. Mani has been able to ambulate normally since fall and denies any new pain or dizziness. She has dementia, but mental status is at baseline. Mani is not on anticoags, though takes ASA 81 mg daily. She also had dialysis earlier today. Mansi is applying ice to L eyebrow and knee and was also encouraged to have mani keep LLE elevated overnight. She would like medic eval tomorrow. Mansi was encouraged to call back if mbr has any acute changes, such as increased swelling or trouble walking. PMHx also includes R hemiplegia, ZARA, Parkinsons, anemia. ....................... ....................... ....................... ....................... ....................... ....................... ... CRC Nurse Triage Notes (Aimee Christine): Comments: CRC RN DID NOT NEED FURTHER INFO ....................... ....................... ....................... ....................... ....................... ....................... ... Kick Plate Installer Note From Buddy Lizama: Pts daughter/CG reports witnessed fall from standing last night. Pt fell to her left knee and then bumped her left eye/eyebrow. Daughter denies any LOC and sts she is not on any blood thinners. Pt currently denies any EATON, knee pain, dizziness, vision changes, weakness. Pt is alert, NAD. VSS. Afebrile. Non focal neuro exam. Pupils 3 mm +PERRLA. Bruising and edema to the left upper eyelid. Bruising on the left knee. Daughter instructed to monitor sx, continue using ice and to seek emergent medical care for new or worsening sx, which are reviewed with her. ....................... ....................... ....................... ....................... ....................... ....................... ... Disposition: Fulfilled Chela Ware MD [address] [facility],[address], [place], [address], [employer] 12/20/2023 21:49:23 02/26/2024 text/html HPI: mbr's daughter stating MBR with left foot injury stating and object has fallen on top of foot are is being described as black and painful, refusing ED/urgent care due to mbr having Dementia, requesting [facility] for evaluationProtocol Used: Foot PainProtocol-Based Disposition: Consider instED, STEM SHAPER, MD/COLLECTION CARD CLERK triage, PCP, or ED /Urgent Care Visit nowPositive Triage Question:* [1] Swollen foot AND [2] feverNegative Triage Question:* Entire foot is cool or blue in comparison to other foot ....................... ....................... ....................... ....................... ....................... ....................... ... CRC Nurse Triage Notes (Lionel Parada): Chief Complaints: Edema, Injury, Pain PMH: Diabetes, Severe Dementia, CHF Comments: Reviewed HPI ....................... ....................... ....................... ....................... ....................... ....................... ... Kick Plate Installer Note From Tani Velázquez: Dispatched to the call address for the elderly female with foot pain. Pt has Hx of dementia and sometimes is up in the middle of the night. She advises last night before bed there were no issues but this morning she noticed a bruise on her left foot. When questioned the Pt advised she dropped something on it but is not sure what. Pt is not taking a blood thinner at this time. Pt is ambulatory, states mild pain in the area but has full rom in ankle/foot/toes. Pt has not had any Tylenol or used ice yet. Pt has PCP appt tomorrow morning.Pt was found sitting on living room couch, CAOx1 (baseline), in no obvious distress, airway open and patent, breathing non labored, able to speak in full sentences, -JVD, -HEENT, skin PWD with good turgor, abd soft non tender/distended, pupils PERRL, +CMSx4, mild bruising to lateral side of left foot with minimal swelling. [facility] consulted. Red flags discussed. Daughter advised to ice it and use Tylenol if needed. ALL times are approx. ....................... ....................... ....................... ....................... ....................... ....................... ... Disposition: Fulfilled Mariposa Aysola, MD [address] [facility],[address], [place], [id number], [employer] 02/26/2024 13:09:23 OBGyn Episode No OBEpisode recorded.
--- OUTSIDE RECORDS SUMMARY | 2024-06-12 15:43 | XMS_ITS ---
Author Name Jorge Luis, Clinic Address [address] [place] [id number] Phone [phone] Organization [facility] e, NA DOCUMENT DISCLAIMER Multiple document versions may exist, please be sure you review the latest version. The information in the [facility] Continuity of Care Document represents a summary of certain health and medical information. It may not contain the complete medical history for the patient and should be independently verified. The represented time in the document is Eastern Time. PROBLEMS Problem Code Status Onset Date Unspecified dementia, unspec ified severity, without behavioral disturbance, psychotic disturbance, mood disturbance, and anxiety F03.90 Active 2024 Personal history of urinary (tract) infections Z87.440 Active December 26, 2023 Heart failure, unspecified I50.9 Active J une 2023 Acute respiratory failure with hypoxia J96.01 Ac tive November 04, 2023 Disorientation, unspecified R41.0 Active June 17, 2023 Alzheimer's disease, unspecified G30.9 Active June 17, 2023 Hypertensive emergency I16.1 Active Novem sandoval 2022 Acute pulmonary edema J81.0 Active Novemb er 2022 Anaphylactic shock, unspecified, initial encounter T78 .2XXA Active April 08, 2020 Allergy, unspecified, initial encounter T78.40XA A ctive April 08, 2020 Abnormality of albumin R77.0 Active Octob er 2019 Fluid overload, unspecified E87.70 Active February 20, 2020 Idiopathic gout, 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 Act reddy September 27, 2018 Infection and inflammatory r eaction due to other cardiac and vascular devices, implants and grafts, sequela T82.7XXS Active October 19, 2017 Hyperlipidemia, unspecified E78.5 Active August 16, 2017 Hyperkalemia E87.5 Active August 16, 2017 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.311 Active August 15, 2017 Essential (primary) hypertension I10 Active August 15, 2017 Type 2 diabetes mellitus wit h other diabetic kidney complication E11.29 Active August 15, 2017 Encounter for adequacy testing for hemodialysis Z49.31 Active August 15, 2017 Encounter for immunization Z23 Active 2017 Encounter for screening for respiratory tuberculosis Z11.1 Active August 15, 2017 Pain, unspecified R52 Active August 15, 2017 Headache, unspecified R51.9 Active August 15, 2017 Fever, unspecified R50.9 Active August 15, 2017 Diarrhea, unspecified R19.7 Active August 15, 2017 Nausea R11.0 Active August 15, 2017 Other abnormalities of breathing R06.89 Active August 15, 2017 Secondary hyperparathyroidism of renal origin N25.81 Active August 15, 2017 End stage renal disease N18.6 Active 2017 Pruritus, unspecified L29.9 Active August 15, 2017 Angina pectoris, unspecified I20.9 Active August 15, 2017 Other disorders of electroly te and fluid balance, not elsewhere classified E87.8 Active August 15, 2017 Coagulation defect, unspecified D68.9 Active August 15, 2017 Anemia in chronic kidney disease D63.1 Active August 15, 2017 Iron deficiency anemia, unspecified D50.9 Activ e August 15, 2017 ALLERGIES AND ADVERSE REACTIONS Substance Reaction Severity Status Mellaril Unknown Active thioridazine Unknown Active SOCIAL HISTORY Tobacco Use Status Tobacco Type Unknown if ever consumed tobacco - Caregiver Characteristics No Information Available Characteristics of Home environment No Information Available Gender and Sex Information Gender Identity Sexual Orientation No Information Available No Information Available MEDICATIONS Prescribed Medications for Dialysis Treatments Medication Instructions Dosage Route Start Date End Date Stat Acetaminophen PRN Q 4 H Generalized Pain 650 mg Oral August 24, 2023 August 22, 2024 Active Vitamin D (Calcitriol) Oral Every Treatment 0.50 mcg Oral March 09, 2024 March 08, 2025 Active Iron Sucrose (Venofer) During Dialysis, 3X Week 100 mg Intravenous - push May 07, 2024 May 16, 2024 Discontinued Iron Sucrose (Venofer) During Dialysis, 1X Week 50 mg Intravenous - push May 18, 2024 May 17, 2025 Discontinued Mircera During Dialysis, Every 2 weeks 100 mcg Intravenous - push May 16, 2024 May 15, 2025 Discontinued Home Medications Medication Instructions Dosage Route Start Date End Date Stat acetaminophen 500 mg ORAL February 12, 2021 Active aspirin 81 mg Take by mouth once a day 1 tablet ORAL October 01, 2020 Active atorvastatin 20 mg Take by mouth at bedtime 1 tablet ORAL August 15, 2017 Active carbidopa-levodop a 25-100 mg Take by mouth three times a day 1 1/2 tablet ORAL October 01, 2020 Active carvedilol 12.5 mg Take by mouth twice a day 1 tablet ORAL December 24, 2020 Active gabapentin 100 mg ORAL 2020 Active hydralazine 25 mg Take by mouth three times a day 1 tablet ORAL May 04, 2023 Active Lantus Solostar U-100 Insulin 100 unit/mL (3 mL) SUBCUTANEOUS August 15, 2017 Active lidocaine-priloca ine 2.5-2.5% Apply to skin three times a week as directed TOPICAL October 19, 2017 Active loratadine 10 mg Take by mouth once a day as directed 1 tablet ORAL October 01, 2020 Active melatonin 5 mg Take by mouth at bedtime 1 tablet ORAL October 01, 2020 Active multivitamin Take by mouth once a day 1 tablet ORAL October 01, 2020 Active nifedipine 90 mg Take by mouth once a day as directed 1 tablet ORAL January 25, 2022 Active oxycodone 5 mg Take by mouth twice a day as needed 1/2 tablet ORAL December 24, 2020 Active pantoprazole 40 mg Take by mouth once a day as directed 1 tablet ORAL October 01, 2020 Active risperidone 0.5 mg Take by mouth twice a day 1 tablet ORAL October 01, 2020 Active senna 8.6 mg ORAL January Active torsemide 20 mg Take by mouth as directed 4 tablet ORAL October 26, 2023 Active trazodone 50 mg Take by mouth every night at bedtime as needed 1/2 tablet ORAL October 26, 2023 Active Velphoro 500 mg Take three times a day with meals 1 tablet ORAL May 31, 2024 Active Vitamin D2 1,250 mcg (50,000 unit) Take by mouth once a week 1 capsule ORAL May 16, 2024 Active VITAL SIGNS Post-Treatment Vital Signs Vital Sign Value Date / Time Blood Pressure-sitting 130/62 mmHg May 302024 01:21 PM Blood Pressure-standing 126/60 mmHg June 11, 2024 01:21 PM Heart Rate 64 beats per minute June 11, 2024 01:21 PM Respiratory Rate 18 breaths per minute May 302024 01:21 PM Temperature 96.0 deg. F June 11, 2024 01:21 PM Weight Vital Sign Value Date / Time Estimated Dry Weight 64 kg March 11:59 PM Pre-Dialysis 66.00 kg June 11, 2024 01:21 PM Post-Dialysis 63.70 kg June 11, 2024 01:21 PM Other Other Value Date / Time Height 158 cm April 09 12:00 AM Body Mass Index 25.64 kg/m2 May 28 01:35 PM LAB RESULTS Hematology Result Type Result Value Relevant Referen ce Range Interpretation Date Ferritin 1361 ng/mL 10 - 291 ng/mL High January 04, 2024 Transferrin Sat. (Calc) 89 % 20 - 55 % High January 04, 2024 TIBC (Calc) 235 mcg/dL 185 - 515 mcg/dL - January 04, 2024 UIBC/TIBC 27 mcg/dL 155 - 355 mcg/dL Low December Ferritin 814 ng/mL 10 - 291 ng/mL High February 01, 2024 UIBC/TIBC 197 mcg/dL 155 - 355 mcg/dL - 2023 Transferrin Sat. (Calc) 21 % 20 - 55 % - January 31 TIBC (Calc) 248 mcg/dL 185 - 515 mcg/dL - 2023 WBC (No Diff) 7.54 1000/mcL 4.80 - 10.80 1000/mcL - February 29, 2024 UIBC/TIBC 176 mcg/dL 155 - 355 mcg/dL - February 29, 2024 TIBC (Calc) 217 mcg/dL 185 - 515 mcg/dL - February 29, 2024 Transferrin Sat. (Calc) 19 % 20 - 55 % Low February 29, 2024 Ferritin 875 ng/mL 10 - 291 ng/mL High February Hemoglobin x 3 40.8 % 36.0 - 48.0 % - March 14, 2024 Hemoglobin x 3 38.1 % 36.0 - 48.0 % - March 21, 2024 Hemoglobin x 3 35.4 % 36.0 - 48.0 % Low March 28, 2024 Transferrin Sat. (Calc) See comment 20 - 55 % - April 04 TIBC (Calc) See comment 185 - 515 mcg/dL - 2023 UIBC/TIBC < 25 mcg/dL 155 - 355 mcg/dL Low 2023 Iron 226 mcg/dL 30 - 160 mcg/dL High April 04, 2024 Ferritin 1272 ng/mL 10 - 291 ng/mL High March Hemoglobin x 3 32.7 % 36.0 - 48.0 % Low 2023 UIBC/TIBC 36 mcg/dL 155 - 355 mcg/dL Low April 06, 2024 TIBC (Calc) 269 mcg/dL 185 - 515 mcg/dL - 2023 Iron 233 mcg/dL 30 - 160 mcg/dL High April 06, 2024 Transferrin Sat. (Calc) 87 % 20 - 55 % High April 06 Hemoglobin x 3 30.3 % 36.0 - 48.0 % Low 2023 Hemoglobin x 3 28.2 % 36.0 - 48.0 % Low 2023 Hemoglobin x 3 27.3 % 36.0 - 48.0 % Low 2023 Transferrin Sat. (Calc) 20 % 20 - 55 % - May 02 Iron 49 mcg/dL 30 - 160 mcg/dL - May 02, 2024 UIBC/TIBC 192 mcg/dL 155 - 355 mcg/dL - May 02, 2024 TIBC (Calc) 241 mcg/dL 185 - 515 mcg/dL - 2023 Ferritin 1137 ng/mL 10 - 291 ng/mL High April Hemoglobin x 3 29.1 % 36.0 - 48.0 % Low [facility]2023 Hemoglobin x 3 31.8 % 36.0 - 48.0 % Low [facility]2023 Hemoglobin x 3 34.5 % 36.0 - 48.0 % Low [facility]2023 HGB 11.5 g/dL 12.0 - 16.0 g/dL Low May 16, 2024 HGB 12.5 g/dL 12.0 - 16.0 g/dL - May 25, 2024 Hemoglobin x 3 37.5 % 36.0 - 48.0 % - [facility]2023 Iron 67 mcg/dL 30 - 160 mcg/dL - May UIBC/TIBC 159 mcg/dL 155 - 355 mcg/dL - June 01, 2024 TIBC (Calc) 226 mcg/dL 185 - 515 mcg/dL - June 01, 2024 Transferrin Sat. (Calc) 30 % 20 - 55 % - June 01, 2024 Ferritin 1541 ng/mL 10 - 291 ng/mL High May RBC 3.87 mill/mcL 4.20 - 5.40 mill/mcL Low June 01, 2024 HCT 38.4 % 37.0 - 47.0 % - June 01, 2024 MCH 32.2 pg 27.0 - 31.0 pg High May MCHC 32.4 g/dL 30.0 - 36.0 g/dL - June 01, 2024 RDW 15.9 % 11.5 - 14.5 % High June 01, 2024 HGB 12.4 g/dL 12.0 - 16.0 g/dL - June 01, 2024 Hemoglobin x 3 37.2 % 36.0 - 48.0 % - June 01, 2024 Retic HGB (CHr) 30.9 pg 25.4 - 31.8 pg - 2024 WBC (No Diff) 6.80 1000/mcL 4.80 - 10.80 1000/mcL - June 01, 2024 Hemoglobin x 3 34.8 % 36.0 - 48.0 % Low June 06, 2024 HGB 11.6 g/dL 12.0 - 16.0 g/dL Low June 06, 2024 Metabolic/Renal Result Type Result Value Relevant Referen ce Range Interpretation Date Hemoglobin A1c 6.7 % 4.8 - 5.9 % High February URR, Calc 83 % 65 - 80 % High April 04 024 Creatinine, Serum 6.37 mg/dL 0.60 - 1.30 mg/dL High April 04, 2024 BUN 47 mg/dL 6 - 19 mg/dL High April 04, 2024 BUN, Post 8 mg/dL 6 - 19 mg/dL - April 04, 2024 Bicarbonate 20 mEq/L 22 - 29 mEq/L Low March Chloride 95 mEq/L 96 - 108 mEq/L Low March Potassium 5.0 mEq/L 3.5 - 5.1 mEq/L - April 04, 2024 Sodium 132 mEq/L 136 - 145 mEq/L Low April 04, 2024 BUN/Creat Ratio 7.4 10.0 - 20.0 Low April 04, 2024 Chloride 97 mEq/L 96 - 108 mEq/L - April Creatinine, Serum 6.58 mg/dL 0.60 - 1.30 mg/dL High May 02, 2024 BUN/Creat Ratio 7.0 10.0 - 20.0 Low May 02, 2024 Sodium 134 mEq/L 136 - 145 mEq/L Low May 02, 2024 Potassium 5.0 mEq/L 3.5 - 5.1 mEq/L - May 02, 2024 BUN 46 mg/dL 6 - 19 mg/dL High May 02, 2024 Bicarbonate 23 mEq/L 22 - 29 mEq/L - April URR, Calc 78 % 65 - 80 % - May 04 024 BUN, Post 8 mg/dL 6 - 19 mg/dL - May 04, 2024 BUN 37 mg/dL 6 - 19 mg/dL High May 04, 2024 Hemoglobin A1c 7.0 % 4.8 - 5.9 % High May BUN 58 mg/dL 6 - 19 mg/dL High June 01, 2024 Creatinine, Serum 7.33 mg/dL 0.60 - 1.30 mg/dL High June 01, 2024 BUN/Creat Ratio 7.9 10.0 - 20.0 Low June 01, 2024 Sodium 132 mEq/L 136 - 145 mEq/L Low May Potassium 5.1 mEq/L 3.5 - 5.1 mEq/L - May Chloride 96 mEq/L 96 - 108 mEq/L - May Bicarbonate 23 mEq/L 22 - 29 mEq/L - May URR, Calc 81 % 65 - 80 % High June 01 25 BUN, Post 11 mg/dL 6 - 19 mg/dL - June 01, 2024 HD Adequacy Result Type Result Value Relevant Referen ce Range Interpretation Date Krt/V 0.00 No Reference Ran ge Provided - January 04, 2024 Krt/V 0.00 No Reference Ran ge Provided - February 01, 2024 Krt/V 0.00 No Reference Ran ge Provided - February 29, 2024 eKt/V ([place]) 1.85 No Reference Range Provided - April 04, 2024 Krt/V 0.00 No Reference Ran ge Provided - April 04, 2024 wstdKt/V without residual 2.8 No Reference Range Provided - April 04, 2024 spKt/V ([place]ird[place] II) 2.11 No Reference Range Provided - April 04, 2024 spKt/V Gotch 2.17 No Reference Ran ge Provided - April 04, 2024 wstdKt/V 2.8 No Reference Ran ge Provided - April 04, 2024 wstdKt/V, residual 0.0 No Reference Range Provided - April 04, 2024 wstdKt/V 2.6 No Reference Ran ge Provided - May 04, 2024 wstdKt/V without residual 2.6 No Reference Range Provided - May 04, 2024 Krt/V 0.00 No Reference Ran ge Provided - May 04, 2024 spKt/V (Daugirdas II) 1.85 No Reference Range Provided - May 04, 2024 wstdKt/V, residual 0.0 No Reference Range Provided - May 04, 2024 eKt/V ([place]) 1.61 No Reference Range Provided - May 04, 2024 spKt/V Got 1.92 No Reference Ran ge Provided - May 04, 2024 Krt/V 0.00 No Reference Ran ge Provided - June 01, 2024 eKt/V ([place]) 1.72 No Reference Range Provided - June 01, 2024 spKt/V Gotch 2.04 No Reference Ran ge Provided - June 01, 2024 spKt/V (Daugirdas II) 1.97 No Reference Range Provided - June 01, 2024 wstdKt/V 2.7 No Reference Ran ge Provided - June 01, 2024 wstdKt/V, residual 0.0 No Reference Range Provided - June 01, 2024 wstdKt/V without residual 2.7 No Reference Range Provided - June 01, 2024 Bone/Mineral Result Type Result Value Relevant Referen ce Range Interpretation Date Magnesium 2.1 mg/dL 1.6 - 2.6 mg/dL - July 06, 2023 Magnesium 2.4 mg/dL 1.6 - 2.6 mg/dL - August 03, 2023 Magnesium 2.3 mg/dL 1.6 - 2.6 mg/dL - August 31, 2023 Magnesium 2.2 mg/dL 1.6 - 2.6 mg/dL - May 01, 2 024 Magnesium 1.9 mg/dL 1.6 - 2.6 mg/dL - November 04, 2023 Magnesium 2.3 mg/dL 1.6 - 2.6 mg/dL - November 30, 2023 PTH-Intact, Plasma 170 pg/mL 16 - 80 pg/mL High Dec Magnesium 2.2 mg/dL 1.6 - 2.6 mg/dL - December Magnesium 2.0 mg/dL 1.6 - 2.6 mg/dL - February 01, 2024 PTH-Intact, Plasma 380 pg/mL 16 - 80 pg/mL High Jan Magnesium 2.1 mg/dL 1.6 - 2.6 mg/dL - February PTH-Intact, Plasma 435 pg/mL 16 - 80 pg/mL [facility] Feb Vitamin D 25 Hydroxy 111.0 ng/mL 30 - 100 ng/mL High February 29, 2024 PTH-Intact, Plasma 183 pg/mL 16 - 80 pg/mL [facility] Mar Magnesium 2.1 mg/dL 1.6 - 2.6 mg/dL - April 04, 2024 Corrected Ca x P Product - April 04 Phosphorus 3.0 mg/dL 2.6 - 4.5 mg/dL - April 04, 2024 Calcium, Total 9.4 mg/dL 8.4 - 10.2 mg/dL - 2023 Alkaline Phosphatase 199 U/L 35 - 104 U/L [facility] 2023 Ca x P Product - March PTH-Intact, Plasma 221 pg/mL 16 - 80 pg/mL High Apr Corrected Ca x P Product - May 02 Magnesium 2.2 mg/dL 1.6 - 2.6 mg/dL - May 02, 2024 Phosphorus 3.2 mg/dL 2.6 - 4.5 mg/dL - May 02, 2024 Ca x P Product 0 - April Alkaline Phosphatase 188 U/L 35 - 104 U/L [facility] 2023 Calcium, Total 9.0 mg/dL 8.4 - 10.2 mg/dL - 2023 Ca x P Product 27 0 - 54 - May Alkaline Phosphatase 177 U/L 35 - 104 U/L High nuary 2024 Corrected Ca x P Product 27 0 - 54 - June 01, 2024 Magnesium 2.1 mg/dL 1.6 - 2.6 mg/dL - May Calcium, Total 9.0 mg/dL 8.4 - 10.2 mg/dL - Ricky [id number] Phosphorus 3.0 mg/dL 2.6 - 4.5 mg/dL - May PTH-Intact, Plasma 239 pg/mL 16 - 80 pg/mL High Marty uary 2024 Liver/Nutrition Result Type Result Value Relevant Reference Range Interpre tation LDH 172 U/L 118 - 273 U/L - February 29, 2024 eNPCR 0.95 No Reference Ran ge Provided - April 04, 2024 Albumin (BCG) 4.1 g/dL 3.5 - 5.2 g/dL - 2023 SGPT (ALT) 8 U/L 7 - 52 U/L - April 04 Albumin (BCG) 4.0 g/dL 3.5 - 5.2 g/dL - 2023 SGPT (ALT) 6 U/L 7 - 52 U/L Low May 02 024 eNPCR 0.80 No Reference Ran ge Provided - May 04, 2024 SGPT (ALT) 4 U/L 7 - 52 U/L Low June 01 25 Albumin (BCG) 4.0 g/dL 3.5 - 5.2 g/dL - June 01, 2024 eNPCR 1.15 No Reference Ran ge Provided - June 01, 2024 Lipid Result Type Result Value Relevant Referen ce Range Interpretation Date Cholesterol, Total 138 mg/dL 0 - 199 mg/dL - Feb Triglycerides 203 mg/dL 0 - 149 mg/dL High February 29, 2024 Immunochemistry Result Type Result Value Relevant Reference Range Interpre tation Date HCV s/co ratio 0.11 0.00 - 0.79 - August 31, 2023 HCV s/co ratio 0.06 0.00 - 0.79 - February Trace Elements Result Type Result Value Relevant Reference Range Interpre tation Date Aluminum < 5 mcg/L 0 - 10 mcg/L - February 29, 2024 Infectious Diseases Result Type Result Value Relevant Referen ce Range Interpretation Date HCV Ab (anti-HCV) Nonreactive No Reference R dank Provided - February 29, 2024 Hep B Surface Ab (anti-HBs) > 1000 mIU/mL No Reference Range Provided - April 04, 2024 Hep B Surface Ag (HBsAg) Negative No Reference Range Provided - June 01, 2024 DIALYSIS PRESCRIPTION Conventional Hemodialysis Data Element Value Order Date/Time April 11, 2024 Frequency 3X Week Treatment Days MonWedFri Dialyzer [id number] Optiflux Treatment Time (Total Minutes) 240 min Blood Flow Rate (mL/min) 450 mL/min Dialysate Flow Rate Manual 500 Estimated Dry Weight 64 kg Dialysate Concentrate 2.0 K, 2.50 Ca, 1. 0 Mg, 100 Dextrose ([id number]) Sodium (mEq/L) 134 mEq/L Bicarb Machine Setting (mEq/L) 32 mEq/L Dialysis Access Hemodialysis-AV Fist taiwo-Standard, Left Upper Arm, Brachial Artery to Cephalic Vein Access Placed on May 17, 2017 Arterial Needle Size 15g1 Venous Needle Size 15g1 IMMUNIZATIONS Vaccine Date Dose Route Status Flu Vaccine - Flublok Trivalent March 16, 2024 0.5 mL Intramuscular Completed HEPLISAV-B, Series 4 of February 01, 2024 20.0 mcg In tramuscular Completed HEPLISAV-B, Series 3 of November 30, 2023 20.0 mcg Intramu scular Completed HEPLISAV-B, Series 2 of 4 November 04, 2023 20.0 mcg Intramu scular Completed HEPLISAV-B, Series 1 of September 28, 2023 20.0 mcg Intramus cular Completed Flu Vaccine - Flublok Quadrivalent March 16, 2023 Intramuscular Completed Moderna COVID-19 Vaccine, Bivalent, Booster March 12, 2022 0.5 mL Intramuscular Completed Moderna COVID-19 Vaccine, Booster November 13, 2021 0.25 mL Intramuscular Completed Moderna COVID-19 Vaccine, Additional Dose April 03, 2021 0.5 mL Intramuscular Completed Moderna COVID-19 Vaccine, Do se 2 of 2 August 01, 2020 0.5 mL Intramuscular Completed Moderna COVID-19 Vaccine, Do se 1 of July 04, 2020 0.5 mL Intramuscular Completed LAOHPZQ-M-VNGFU, series 4 of 4 November 01, 2018 40.0 mcg In tramuscular Completed ZEWEVUG-R-EDCWW, series 3 of July 05, 2018 40.0 mcg Intramuscular Completed HKEDESY-D-LXUBZ, series 2 of 4 May 31, 2018 40.0 mcg Intramuscular Completed XQSDRXN-D-MWYKF, series 1 of May 03, 2018 40.0 mcg Intramuscular Completed ATKZAFV-B-VMATO December 02, 2017 40.0 mcg Intramuscular Com pleted VSHSYKB-Z-PABFM September 02, 2017 40.0 mcg Intramuscular Co mpleted TRANSPLANT WAITLIST STATUS No Information on Transplant Waitlist Status ADVANCE DIRECTIVES Directive Description Ordered By Effective Date Resuscitation status Do Not Resuscitate (DNR) Gutierrez Dennis Jul 01, 2024 DIALYSIS TREATMENTS Conventional Hemodialysis Date Pre-Treatment Vitals Post-Treatment Vero ls Duration (hr) BFR (mL/min) Dialysate Dialyzer Dialysis Access Meds Admin 2024 Weight 65.30 kg Weight 64.10 kg 04:00:00 430 2.0 K, 2.50 Ca, 1.0 Mg, 100 Dextrose ([id number]) 160nre Optifl ux Blood Pressure-sitting 176/65 mmHg Blood Pressure-sit ting 148/59 mmHg Heart Rate 62 beats per minute Heart Rate 78 beats per minute Respiratory Rate 20 breaths per minute Respiratory Rate 20 breaths per minute Temperature 96.7 deg. F Temperature 96.9 deg. F June 08, 2024 Weight 67.00 kg Weight 63.30 kg 04:01:00 440 2.0 K, 2.50 Ca, 1.0 Mg, 100 Dextrose ([id number]) 160nre Optiflux Hemodialysis-AV Fistula-Standard, Left Upper Arm, Brachial Artery to Cephalic Vein Access Placed on May 17, 2017 Vitamin D (Calcitriol) Oral; 0.50mcg,Oral Blood Pressure-sitting 158/61 mmHg Blood Pressure-sit ting 154/63 mmHg Heart Rate 66 beats per minute Blood Pressure-standi ng 133/63 mmHg Respiratory Rate 18 breaths per minute Heart Rate 65 beats per minute Temperature 97.1 deg. F Respiratory Rate 20 breaths per minute - - Temperature 96.8 deg. F June 11, 2024 Weight 66.00 kg Weight 63.70 kg 03:47:00 420 2.0 K, 2.50 Ca, 1.0 Mg, 100 Dextrose ([id number]) 160nre Optiflux Hemodialysis-AV Fistula-Standard, Left Upper Arm, Brachial Artery to Cephalic Vein Access Placed on May 17, 2017 Vitamin D (Calcitriol) Oral; 0.50mcg,Oral Blood Pressure-sitting 138/70 mmHg Blood Pressure-sit ting 130/62 mmHg Heart Rate 63 beats per minute Blood Pressure-standi ng 126/60 mmHg Respiratory Rate 16 breaths per minute Heart Rate 64 beats per minute Temperature 97.3 deg. F Respiratory Rate 18 breaths per minute - - Temperature 96.0 deg. F
--- OUTSIDE RECORDS SUMMARY | 2024-06-12 15:43 | XMS_ITS | Continuity of Care Document ---
Author Organization [facility] Address [address] [place] [address]- Care Team Providers Care Production Line Assembler Name Role Phone Eliseo Watkins MD Primary Care Physician [id number] Date(s): 05/10/24 - 06/09/[address] [address]- Encounter Type: Triage Allergies, Adverse Reactions, Alerts [...] Note: VIS GIVEN 02/28/2009 11Admin Note: VIS [id number] Problem List Condition Confirmation Course Effective Dates Status H ealth Status Informant Anemia Confirmed Active Dementia Confirmed Active Dyslipidemia Confirmed Active ESRD (end stage renal disease) Confirmed Active GERD without esophagitis Confirmed Active H/O GI bleed Confirmed Active Heart failure with preserved ejection fraction Confirmed Active Hyperkalemia Confirmed Active Hypertension Confirmed Active Non-Luxembourgish speaking patient Confirmed Active Mammographic Microcalcification, right breast Confirmed 05/12/10 Active Obstructive sleep apnea syndrome Confirmed Active Parkinsons disease 1 Confirmed Active *[id number] [facility] Confirmed Active Postmenopausal bleeding Confirmed Active Remote [...] Team Personnel Name: Shellie Gonzales RN Position: [facility] RN Member Role: Primary Care Nurse Name: Michael Duenas NP Position: [facility] Associate Professional Member Role: Lifetime Consulting Provider Address: [address] [place] [id number]- Telecom: Name: Lina Lin RN Position: [facility] RN Supv Member Role: Primary Care Nurse Name: Lilian Amin RN Position: [facility] ED RN W/OE and Tasks Member Role: Primary Care Nurse Name: Rand Hunt RN Position: [facility] RN Member Role: Primary Care Nurse Name: Mary Cantu RN Position: [facility] RN Member Role: Primary Care Nurse Name: Michelle Seo RN Position: [facility] RN Member Role: Primary Care Nurse Name: May Carrillo RN Position: [facility] AMB Nurse Member Role: Primary Care Nurse Name: Elvia Marc RN Position: [facility] RN Member Role: Primary Care Nurse Name: Theresa Crowder Position: [facility] Outreach Member Role: Lifetime Consulting Physician Name: Liza Bailey RN Position: [facility] RN Member Role: Primary Care Nurse Name: Ofe Hunt RN Position: [facility] Onco RN Member Role: Primary Care Nurse Name: Karla Galloway RN Position: [facility] OB RN Member Role: Primary Care Nurse Name: Zaira Gooden RN Position: [facility] AMB Nurse Member Role: Primary Care Nurse Name: Mercy Rasmussen RN Position: [facility] RN Member Role: Primary Care Nurse Name: Jaclyn Clark RN Position: [facility] RN Member Role: Primary Care Nurse Name: Jane Doe NP Position: [facility] Associate Professional Member Role: Lifetime Consulting Provider Address: [address] [facility] [place] [address]- Telecom: Name: Tay Wills MD Position: [facility] Renal MD Member Role: Lifetime Consulting Physician Address: [address] [facility] [place] [address] [facility] [place] [address]- Telecom: Name: Jazmín Carrillo RN Position: [facility] RN Member Role: Primary Care Nurse Name: Rosa Mata RN Position: [facility] RN Member Role: Primary Care Nurse Name: Sybil Swan RN Position: [facility] RN Member Role: Primary Care Nurse Name: Gonzalo Call RN Position: [facility] JONNATHAN RN W/OE and Tasks Member Role: Primary Care Nurse Name: No Ayala RN Position: [facility] RN Member Role: Primary Care Nurse Name: Sarita Gaxiola RN Position: [facility] RN Member Role: Primary Care Nurse Name: Alvarez Larose DO Position: [facility] Renal MD Member Role: Lifetime Consulting Physician Address: [address] [facility] [place] [address] [facility] [place] [address]- Telecom: Name: Moni Gracia RN Position: [facility] RN Member Role: Primary Care Nurse Name: Chevy Burnett III, RN Position: [facility] RN Member Role: Primary Care Nurse Name: Mildred Kaur RN Position: [facility] RN Member Role: Primary Care Nurse Name: Rosa Nieto RN Position: [facility] RN Member Role: Primary Care Nurse Name: Abi Schwartz RN Position: [facility] RN Member Role: Primary Care Nurse Name: Patito Cano RN Position: [facility] AMB Nurse Member Role: Primary Care Nurse Name: Chyna Cedeno RN Position: [facility] AMB Nurse Member Role: Primary Care Nurse Name: Kae Sheldon RN Position: [facility] RN Member Role: Primary Care Nurse Name: Ginger Laguna RN Position: [facility] RN Member Role: Primary Care Nurse Name: Eliseo Watkins MD Position: [facility] Physician - Primary Care Member Role: PCP Address: [place] [address]- Telecom: Name: Yuli Barahona RN Position: [facility] RN Member Role: Primary Care Nurse Name: Abena Gates RN Position: [facility] RN Member Role: Primary Care Nurse Name: Clark Walton RN Position: [facility] ED RN W/OE and Tasks Member Role: Primary Care Nurse Name: Carine Pacheco RN Position: [facility] RN Member Role: Primary Care Nurse Name: Nakul Todd RN Position: [facility] RN Member Role: Primary Care Nurse Name: Macey Dalal RN Position: [facility] RN Member Role: Primary Care Nurse Name: Rachel Dove RN Position: [facility] RN Member Role: Primary Care Nurse Name: Fox Washington RN Position: [facility] RN Member Role: Primary Care Nurse Name: Edith Fisher RN Position: [facility] RN Member Role: Primary Care Nurse Name: Merissa Quevedo RN Position: [facility] RN Member Role: Primary Care Nurse Name: Rufino Silva MD Position: [facility] Renal MD Member Role: Lifetime Consulting Physician Address: [address] [place] [address] [facility] [address] Telecom: Care Team Related Persons Name: ANNEMARIE TA Name: ANNEMARIE TA SON IN LAW Name: RL TA Name: DELIA MORERLL Insurance Providers Guarantor name: SILVIA LOZANO Health Plan Information #: 1 Payer: NA Member Number: NA Policy Number: NA Group Number: NA
== END 2024-06-12 14:28 | disposition home or self-care (01) ==
PROVIDERS: PCP Pediatrics; Visit Provider Nurse Practitioner Family
DX: G20.A1 Parkinson's disease without dyskinesia, without mention of fluctuations (principal); R44.3 Hallucinations, unspecified; K59.00 Constipation, unspecified; N28.9 Disorder of kidney and ureter, unspecified
CPT/HCPCS: 99214

== ENCOUNTER → 2024-06-12 13:26 | Outpatient (BNVA) | payer OTHER, SELFPAY | PROVIDERS: PCP Pediatrics; Visit Provider Nurse Practitioner Family | DX: G20.A1 Parkinson's disease without dyskinesia, without mention of fluctuations (principal); R44.3 Hallucinations, unspecified; N28.9 Disorder of kidney and ureter, unspecified; K59.00 Constipation, unspecified | CPT/HCPCS: 99212 ==

== ENCOUNTER 2025-02-21 08:54 | Outpatient (AMB) | payer OTHER, SELFPAY ==
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
[2025-02-21 09:03] VITALS: BP 120/60
--- OUTSIDE RECORDS SUMMARY | 2025-02-21 09:36 | XMS_ITS | Continuity of Care Document ---
Author Name [facility], Medical Address [address] [place] [address] Organization Unknown Address [address] [place] [address] Medications No known medications Problems No known problems
--- OUTSIDE RECORDS SUMMARY | 2025-02-21 09:37 | XMS_ITS | Encounter Summary ---
Author Organization [facility] Address [address] [place] [id number] Care Team Providers Care Shoe Cementer Name Role Phone Jass Gomez Primary Care Provider [phone] Encounter Details Date Type Department Care Team (Late st Contact Info) Description 07/06/2024 Lab Requisition [facility] - Main Lab [address] [facility] [place] [address] Jass Gomez [address] [facility] [phone] [place] [phone] Hyperlipidemia, unspecified; Chronic diastolic (congestive) heart failure (CMS/HCC V24, CMS/HCC V28) Social History Tobacco Use Types Packs/Day Years Used Date Smoking Tobacco: Never Assessed Comments Unknown Sex and Gender Information Value Date Recorded Sex Assigned at Not on file Legal Sex Female 10:08 AM EST Gender Identity Not on file Sexual Orientation Not on file documented as of this encounter Plan of Treatment Not on file documented as of this encounter Visit Diagnoses Diagnosis Hyperlipidemia, unspecified Chronic diastolic (congestive) heart failure (CMS/HCC V24, CMS/HCC V28) documented in this encounter Care Teams Shoe Cementer Relationship Specialty Start Date End Date Jass Gomez [address] [facility] [phone] [place] [phone] PCP - General 06/25/24 documented as of this encounter
--- OUTSIDE RECORDS SUMMARY | 2025-02-21 09:37 | XMS_ITS | Clinical Summary ---
Author Organization [facility], Address [address] [place] [address] Phone Care Team Providers Care Inside Sales Territory Manager Name Role Phone Teodoro Galeana MD Primary Care Provider [phone] Allergies Active Allergy Reactions Criticality Noted Date Comments Thioridazine Other (see comments) High 05/22/2019 Thioridazine or (Mellaril): Prolonged QT Other reaction(s): ? unsure, prolonged QT Medications atorvastatin (LIPITOR) 20 MG tablet 9 Active lidocaine-priloca ine (EMLA) cream 0 Active Acetaminophen Extra Strength 500 MG tablet 1 Active carvedilol (COREG) 6.25 MG tablet 12.5 mg in the morning and 12.5 mg in the evening. Take with meals. 2 Active aspirin (ST GINI) 81 MG EC tablet Take 81 mg by mouth 1 (one) time each day Active carbidopa-levodop a (SINEMET) 25-100 MG per tablet Take 1.5 tablets by mouth in the morning and 1.5 tablets in the evening and 1.5 tablets before bedtime. Active loratadine (CLARITIN) 10 MG tablet Take 10 mg by mouth 1 (one) time each day Active Melatonin 5 MG capsule Take by mouth Active Multiple Vitamin (multivitamin) tablet Take 1 tablet by mouth 1 (one) time each day Active risperiDONE (RisperDAL) 0.5 MG tablet Take 0.5 mg by mouth in the morning and 0.5 mg in the evening. Active insulin glargine (LANTUS) 100 UNIT/ML injection Inject under the skin every night Active gabapentin (NEURONTIN) 100 MG capsule Take 100 mg by mouth Active NIFEdipine CC (ADALAT CC) 60 MG 24 hr tablet Take 60 mg by mouth in the morning and 60 mg in the evening. Do not crush, chew, or split. . Active oxyCODONE (OXY-IR) 5 MG immediate release capsule Take 2.5 mg by mouth in the morning and 2.5 mg in the evening. Active pantoprazole (PROTONIX) 40 MG EC tablet Take 40 mg by mouth 1 (one) time each day before breakfast Do not crush, chew, or split. Active Sucroferric Oxyhydroxide (Velphoro) 500 MG chewable tablet Chew 1 tablet 3 (three) times a day with meals Active hydrALAZINE 25 MG tablet 3 Active fluticasone (FLONASE) 50 MCG/ACT nasal spray 3 Active Hospital, Clinic, or Other Facility Administered Medication Ordered Dose Route Frequency Start Date End Date Status midazolam (VERSED) injection 1 mgIndications:Stage 5 chronic kidney disease (HCC) 1 mg IV As needed 05/24/2019 Active fentaNYL (SUBLIMAZE) injection 50 mcgIndications:Stage 5 chronic kidney disease (HCC) 50 mcg IV As needed 05/24/2019 Active Active Problems Problem Noted Date Diagnosed Date Hypertensive emergency 10/19/2022 Gastrointestinal hemorrhage 09/10/2021 History of cerebrovascular accident 09/10/2021 Postmenopausal bleeding 09/10/2021 Urinary tract infection 05/27/2020 COVID-19 03/05/2020 Cerebrovascular accident 05/21/2019 Chronic obstructive pulmonary disease 05/21/2019 Unspecified dementia, unspec ified severity, without behavioral disturbance, psychotic disturbance, mood disturbance, and anxiety 05/21/2019 Dependence on renal dialysis 05/21/2019 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 Dyslipidemia 05/21/2019 Insomnia 05/21/2019 Parkinson's disease 05/21/2019 Schizophrenia 05/21/2019 Sleep apnea 05/21/2019 Retinopathy due to diabetes mellitus 05/21/2019 Idiopathic gout, right ankle and foot 09/27/2018 Infection and inflammatory r eaction due to other cardiac and vascular devices, implants and grafts, sequela 10/19/2017 Hyperkalemia 08/16/2017 Hyperlipidemia 08/16/2017 End stage renal disease 08/15/2017 Anemia in chronic kidney disease 08/15/2017 Essential (primary) hypertension 08/15/2017 Angina pectoris 08/15/2017 Coagulation defect 08/15/2017 Pruritus 08/15/2017 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 08/15/2017 Secondary hyperparathyroidism of renal origin Onychogryphosis 08/19/2016 Tinea pedis 06/03/2016 Mammographic microcalcification of breast 2009 Resolved Problems Problem Noted Date Diagnosed Date Resolved Date Anemia 05/21/2019 04/03/2021 Type 2 diabetes mellitus wit h other diabetic kidney complication 08/15/2017 04/06/2021 Iron deficiency anemia 08/15/201704/03 Type 2 diabetes mellitus 06/03/201609/2020 Encounters Date Type Department Care Team Description 02/13/2025 Orders Only [facility] [address] [address] Gutierrez Dennis MD 02/13/2025 Treatment [facility] [address] [place] [address] Quirino Velasquez MD End stage renal disease; Dependence on renal dialysis; Type 2 diabetes mellitus with diabetic chronic kidney disease 02/08/2025 Treatment [facility] [address] [place] [address] Shellie Sullivan FNP-C End stage renal disease; Dependence on renal dialysis 02/06/2025 Orders Only [facility] [address] [address] Gutierrez Dennis MD 02/01/2025 Treatment [facility] [address] [place] [address] Shellie Sullivan FNP-C End stage renal disease; Dependence on renal dialysis 01/30/2025 Orders Only [facility] [address] [address] Gutierrez Dennis MD 01/23/2025 Orders Only [facility] [address] [address] Gutierrez Dennis MD 01/16/2025 Orders Only [facility] [address] [address] Gutierrez Dennis MD 01/16/2025 Treatment [facility] [address] [place] [address] Shellie Sullivan FNP-C End stage renal disease; Dependence on renal dialysis 01/11/2025 Treatment [facility] [address] [place] [address] Quirino Velasquez MD End stage renal disease; Dependence on renal dialysis; Type 2 diabetes mellitus with diabetic chronic kidney disease 01/09/2025 Orders Only [facility] [address] [address] Gutierrez Dennis MD 01/04/2025 Treatment [facility] [address] [place] [address] Shellie Sullivan FNP-C End stage renal disease; Dependence on renal dialysis 01/02/2025 Orders Only [facility] [address] [address] Gutierrez Dennis MD 12/28/2024 Treatment [facility] [address] [place] [address] Shellie Sullivan FNP-C End stage renal disease; Dependence on renal dialysis 12/26/2024 Orders Only [facility] [address] [address] Gutierrez Dennis MD 12/19/2024 Orders Only [facility] [address] [address] Gutierrez Dennis MD 12/19/2024 Treatment [facility] [address] [place] [address] Shellie Sullivan FNP-C End stage renal disease; Dependence on renal dialysis 12/12/2024 Orders Only [facility] [address] [address] Gutierrez Dennis MD 12/12/2024 Treatment [facility], [address] [place] [address] Shellie Sullivan FNPElenaC End stage renal disease; Dependence on renal dialysis 12/07/2024 Treatment [facility], [address] [place] [address] Quirino Velasquez MD End stage renal disease; Dependence on renal dialysis; Type 2 diabetes mellitus with diabetic chronic kidney disease 12/05/2024 Orders Only [facility] [address] [address] Gutierrez Dennis MD 12/05/2024 Treatment [facility], [address] [place] [address] Shellie Sullivan FNP-Clive End stage renal disease; Dependence on renal dialysis 11/28/2024 Orders Only [facility] [address] [address] Gutierrez Dennis MD 11/21/2024 Orders Only [facility] [address] [address] Gutierrez Dennis MD from Last 3 Months Family History Medical History Relation Comments Diabetes Mother Cancer Sibling Brother Bone Diabetes Sibling Brother Heart disease Sibling Brother CAD s/p CABG Hypertension Sibling Brother Relation Status Comments Father Mother Sibling Social History Tobacco Use Types Packs/Day Years Used Date Smoking Tobacco: Never Smokeless Tobacco: Never Alcohol Use Standard Drinks/Week Comments Never 0 (1 standard drink = 0.6 oz pur e alcohol) AUDIT-C Answer Date Recorded Q1: How often do you have a drink containing alc ohol? Never 04/10/2020 Average Number of Drinks Not on file 020 Frequency of Binge Drinking Not on file 03/30 Comments Unknown Sex and Gender Information Value Date Recorded Sex Assigned at Not on file Legal Sex Female 4:36 PM EST Gender Identity Not on file Sexual Orientation Not on file Last Filed Vital Signs Vital Sign Reading Time Taken Comments Blood Pressure 150/66 10/19/2022 12:14 PM EDT Pulse 62 10/19/2022 12:14 PM EDT Temperature 36.2 C (97.2 F) 10/19/2022 12:14 PM EDT Respiratory Rate 16 01/28/2022 9:05 AM EDT Oxygen Saturation 97% 10/19/2022 12:14 PM EDT Inhaled Oxygen Concentration - - Weight 68.5 kg (151 lb) 10/19/2022 12:14 PM EDT Height 157.5 cm (5' 2 ) 10/19/2022 12:14 PM EDT Body Mass Index 27.62 10/19/2022 12:14 PM EDT Plan of Treatment Health Maintenance Due Date Last Done Comments Hepatitis B Vaccine (1 of 5 - Risk Dialysis 4-dose series) 1965 11/01/2018, 07/05/2018, 05/31/2018, Additional history exists Diabetes: Ophthalmology Exam 05/21/2019 Diabetes: Pedal Pulse Checked 05/21/2019 Diabetes: Sensory Foot Exam 05/21/2019 Diabetes: Visual Foot Exam 05/21/2019 Influenza Vaccine (#1) 2025 4, 03/16/2023, 02/19/2017, Additional history exists Diabetes: Hemoglobin A1C 02/28/2025 025, 08/29/2024, 06/25/2024, Additional history exists Pneumococcal Vaccine: 50+ Years Completed 10/22/2014, 08/01/2013, 04/14/2011 Pneumococcal Vaccine: Peds ( 0 to 5 Years) and At-Risk Patients (6 to 49 Years) Discontinued 10/22/2014, 08/01/2013, 04/14/2011 Procedures Procedure Name Priority Date/Time Associated Diagnosis Comments HEMATOLOGY Routine 02/13/2025 HEMATOLOGY Routine 02/06/2025 [facility] RESULTS Routine 01/30/2025 HD KINETICS Routine 01/30/2025 POST CHEMISTRY Routine 01/30/2025 CHEMISTRY Routine 01/30/2025 IMMUNO CHEMISTRY Routine 01/30/2025 CHEMISTRY Routine 01/30/2025 HEMATOLOGY Routine 01/30/2025 HEMATOLOGY Routine 01/23/2025 HEMATOLOGY Routine 01/16/2025 HEMATOLOGY Routine 01/09/2025 [facility] LAB RESULTS Routine 01/02/2025 HD KINETICS Routine 01/02/2025 POST CHEMISTRY Routine 01/02/2025 IMMUNO CHEMISTRY Routine 01/02/2025 CHEMISTRY Routine 01/02/2025 CHEMISTRY Routine 01/02/2025 HEMATOLOGY Routine 01/02/2025 HEMATOLOGY Routine 12/26/2024 HEMATOLOGY Routine 12/19/2024 HEMATOLOGY Routine 12/12/2024 HEMATOLOGY Routine 12/05/2024 [facility] LAB RESULTS Routine 11/28/2024 HD KINETICS Routine 11/28/2024 POST CHEMISTRY Routine 11/28/2024 CHEMISTRY Routine 11/28/2024 IMMUNO CHEMISTRY Routine 11/28/2024 CHEMISTRY Routine 11/28/2024 SPECIAL CHEMISTRY Routine 11/28/2024 HEMATOLOGY Routine 11/28/2024 HEMATOLOGY Routine 11/21/2024 from Last 3 Months Results * (ABNORMAL) HEMATOLOGY (02/13/2025) Only the most recent of13 resultswithin the time period is included. Hemoglobin 11.7(L) 12.0 - 16.0 g/dL [facility] Hemoglobin x 3 35.1(L) 36.0 - 48.0 % [facility] 02/13/2025 02/14/2025 9:2 8 AM EDT Narrative [facility] - 02/14/2025 Unless otherwise specified, test(s) performed at: [facility], [address] [place], [place] [id number] TOBACCO SHAKER: Víctor Curtis M.D. For any questions, please call customer service at FREQUENCY:OTHER Resulting Agency Comment Specimen source: Blood Gutierrez Dennis MD LAB BLOOD ORDERABLES Final Re sult Performing Organization Address City/[facility]/ZIP Co de Phone Number [email or web address] See order comments or contact performing lab Unknown, [place] * (ABNORMAL) HD KINETICS (01/30/2025) Only the most recent of3 resultswithin the time period is included. % Urea Reduction 82(H) 65 - 80 % [facility] 01/30/2025 01/31/2025 11: 45 AM EDT Narrative Resulting Agency Comment Specimen source: Plasma Gutierrez Dennis MD LAB BLOOD ORDERABLES Final Re sult [email or web address] See order comments or contact performing lab Unknown, [place] * POST CHEMISTRY (01/30/2025) Only the most recent of3 resultswithin the time period is included. BUN Post Dialysis 6 6 - 19 mg/dL [facility] 01/30/2025 01/31/2025 11: 45 AM EDT Narrative [facility] - 01/31/2025 Unless otherwise specified, test(s) performed at: [facility], [address] [place] [id number] TOBACCO SHAKER: Víctor Curtis M.D. For any questions, please call customer service at FREQUENCY:MONTHLY Resulting Agency Comment Specimen source: Plasma Gutierrez Dennis MD LAB BLOOD ORDERABLES Final Re sult Performing Organization Address City/[facility]/ZIP Co de Phone Number [facility] See order comments or contact performing lab Unknown, [place] * IMMUNO CHEMISTRY (01/30/2025) Only the most recent of3 resultswithin the time period is included. Pathologist [facility] Hep B Surface Ag Negative Negative [facility] 01/30/2025 01/31/2025 10: 52 AM EDT Narrative Resulting Agency Comment Specimen source: Serum Gutierrez Dennis MD LAB BLOOD ORDERABLES Final Re sult Performing Organization Address [facility] Co de Phone Number [facility] See order comments or contact performing lab Unknown, [place] * (ABNORMAL) [facility] Chemistry (01/30/2025) Only the most recent of6 resultswithin the time period is included. PTH 483(H) 16 - 80 pg/mL [facility] 01/30/2025 01/31/2025 10: 04 AM EDT Narrative [facility] - 01/31/2025 Unless otherwise specified, test(s) performed at: [facility], [address] [place] [id number] TOBACCO SHAKER: Víctor Curtis M.D. For any questions, please call customer service at FREQUENCY:MONTHLY Resulting Agency Comment Specimen source: Plasma Gutierrez Dennis MD LAB BLOOD ORDERABLES Final Re sult Performing Organization Address City/[facility]/ZIP Co de Phone Number [facility] See order comments or contact performing lab Unknown, [place] * [facility] Results (01/30/2025) Only the most recent of3 resultswithin the time period is included. WSTDKT/V 2.7 [facility] spKt/V Gotch 2.02 [facility] ge Center eKdrt/V 1.75 [facility] eKt/V ([place]) 1.74 [facility] PCR 31.08 [facility] nPCR_HD 0.78 [facility] eKt/V Gotch 1.75 [facility] e Center spKt/V (Daugirdas II) 1.99 [facility] eNPCR 0.69 [facility] 01/30/2025 01/30/2025 [facility] [place] LAB BLOOD ORDERABLES Final Result Performing Organization Address City/[facility]/ZIP Co de Phone Number [facility] Contact Performing lab Unknown, [place] * (ABNORMAL) SPECIAL CHEMISTRY (11/28/2024) Hemoglobin A1C 7.2(H) 4.8 - 5.9 % [facility] 11/28/2024 11/29/2024 9:4 5 AM EDT Narrative Resulting Agency Comment Specimen source: Blood Gutierrez Dennis MD LAB BLOOD BANK TEST ORDERABLE S Final Result [facility] See order comments or contact performing lab Unknown, [place] from Last 3 Months Insurance [facility] [employer] SNP ([id number]) SEAN PURDY [id number] Care Teams Inside Sales Territory Manager Relationship Specialty Start Date End Date Teodoro Galeana MD [facility] PCP - General 04/03/19
--- OUTSIDE RECORDS SUMMARY | 2025-02-21 09:37 | XMS_ITS | Continuity of Care Document ---
Author Name [facility], Medical Address [address] [place] [address] Organization Unknown Address [address] [place] [address] Medications No known medications Problems No known problems
--- OUTSIDE RECORDS SUMMARY | 2025-02-21 09:37 | XMS_ITS | Encounter Summary ---
Author Organization [facility] Address [address] [place] [address] Care Team Providers Care Fire Marshal Refinery Name Role Phone Jass Gomez Primary Care Provider [phone] Encounter Details Date Type Department Care Team (Late st Contact Info) Description 06/25/2024 Lab Requisition [facility] Main Lab [address] [facility] [place] [address] Jass Gomez [address] [facility] [phone] [place] [address] Type 2 diabetes mellitus without complications (CMS/HCC V24, CMS/HCC V28); Chronic kidney disease, unspecified Social History Tobacco Use Types Packs/Day Years Used Date Smoking Tobacco: Never Assessed Comments Unknown Sex and Gender Information Value Date Recorded Sex Assigned at Not on file Legal Sex Female 10:08 AM EST Gender Identity Not on file Sexual Orientation Not on file documented as of this encounter Plan of Treatment Not on file documented as of this encounter Procedures Procedure Name Priority Date/Time Associated Diagnosis Comments CBC WITH AUTO DIFFERENTIAL Routine 06/25/2024 9:50 AM EST Type 2 diabetes mellitus without complications (CMS/HCC) Chronic kidney disease, unspecified CBC AND DIFFERENTIAL Routine 06/25/2024 9:50 AM EST Type 2 diabetes mellitus without complications (CMS/HCC) Chronic kidney disease, unspecified HEMOGLOBIN A1C Routine 06/25/2024 9:50 AM EST Type 2 diabetes mellitus without complications (CMS/HCC) Chronic kidney disease, unspecified COMPREHENSIVE METABOLIC PANEL Routine 06/25/2024 9:50 AM EST Type 2 diabetes mellitus without complications (CMS/HCC) Chronic kidney disease, unspecified documented in this encounter Results * (ABNORMAL) CBC auto differential (06/25/2024 9:50 AM EST) [facility] Signature WBC 8.9 4.8 - 10.8 K/mcL LAB HEMETOLOGY METHOD 06/25/2024 2:30 PM [facility] RBC 2.80(L) 3.80 - 4.80 M/mcL LAB HEMETOLOGY METHOD 06/25/2024 2:30 PM [facility] Hemoglobin 8.9(L) 11.5 - 16.0 g/dL LAB HEMETOLOGY METHOD 06/25/2024 2:30 PM [facility] Hematocrit 27.2(L) 35.0 - 47.0 % LAB HEMETOLOGY METHOD 06/25/2024 2:30 PM [facility] MCV 96.1 79.0 - 98.0 FL LAB HEMETOLOGY METHOD 06/25/2024 2:30 PM [facility] MCH 31.4 27.0 - 32.0 pcg LAB HEMETOLOGY METHOD 06/25/2024 2:30 PM [facility] MCHC 32.7 32.0 - 37.0 g/dL LAB HEMETOLOGY METHOD 06/25/2024 2:30 PM [facility] RDW 13.9 11.0 - 15.0 % LAB HEMETOLOGY METHOD 06/25/2024 2:30 PM [facility] Platelets 171 130 - 400 K/mcL LAB HEMETOLOGY METHOD 06/25/2024 2:30 PM [facility] MPV 10.8 7.0 - 11.0 FL LAB HEMETOLOGY METHOD 06/25/2024 2:30 PM [facility] NRBC 0.0 <1.0 % LAB HEMETOLOGY METHOD 06/25/2024 2:30 PM [facility] NRBC Absolute 0.00 <0.10 K/mcL LAB HEMETOLOGY METHOD 06/25/2024 2:30 PM [facility] Neutrophils Relative 74.6 % LAB HEMETOLOGY METHOD 06/25/2024 2:30 PM [facility] Lymphocytes Relative 12.6 % LAB HEMETOLOGY METHOD 06/25/2024 2:30 PM [facility] Monocytes Relative 8.1 % LAB HEMETOLOGY METHOD 06/25/2024 2:30 PM [facility] Eosinophils Relative 3.5 % LAB HEMETOLOGY METHOD 06/25/2024 2:30 PM [facility] Basophils Relative 0.6 % LAB HEMETOLOGY METHOD 06/25/2024 2:30 PM [facility] Immature Granulocytes Relative 0.6 % LAB HEMETOLOGY METHOD 06/25/2024 2:30 PM [facility] Neutrophils Absolute 6.64 1.50 - 7.00 K/mcL LAB HEMETOLOGY METHOD 06/25/2024 2:30 PM [facility] Lymphocytes Absolute 1.12 1.00 - 5.00 K/mcL LAB HEMETOLOGY METHOD 06/25/2024 2:30 PM [facility] Monocytes Absolute 0.72 0.20 - 1.00 K/mcL LAB HEMETOLOGY METHOD 06/25/2024 2:30 PM [facility] Eosinophils Absolute 0.31 0.00 - 0.50 K/mcL LAB HEMETOLOGY METHOD 06/25/2024 2:30 PM [facility] Basophils Absolute 0.05 0.00 - 0.20 K/mcL LAB HEMETOLOGY METHOD 06/25/2024 2:30 PM [facility] Immature Granulocytes Absolute 0.05(H) 0.00 - 0.03 K/mcL LAB HEMETOLOGY METHOD 06/25/2024 2:30 PM EST [facility] Blood Venous blood specimen / Unknown Venipuncture / Unknown 06/25/2024 9:50 AM EST 06/25/2024 1:06 PM EST Jass Gomez LAB BLOOD ORDERABLES Final Resul t Performing Organization Address City/[facility]/ZIP Co de Phone Number [facility] [address] [place] [address], [place] [phone] * (ABNORMAL) Hemoglobin A1c (06/25/2024 9:50 AM EST) Hemoglobin A1C 7.4(H) <6.5 % LAB CHEMISTRY METHOD 06/25/2024 9:14 PM EST [facility] Mean Bld Glu Estim. 166 mg/dL LAB CHEMISTRY METHOD 06/25/2024 9:14 PM EST [facility] Blood Venous blood specimen / Unknown Venipuncture / Unknown 06/25/2024 9:50 AM EST 06/25/2024 1:06 PM EST us Jass Gomez LAB BLOOD ORDERABLES Final Resul t Performing Organization Address [facility]/ZIP Co de Phone Number [facility] [address] [place] [address], [place] [phone] * (ABNORMAL) Comprehensive metabolic panel (06/25/2024 9:50 AM EST) Pathologist [facility] Sodium 128(L) 133 - 145 mmol/L LAB CHEMISTRY METHOD 06/25/2024 4:33 PM EST [facility] Potassium 4.3 3.5 - 5.5 mmol/L LAB CHEMISTRY METHOD 06/25/2024 4:33 PM EST [facility] Chloride 89(L) 96 - 110 mmol/L LAB CHEMISTRY METHOD 06/25/2024 4:33 PM EST [facility] CO2 26 21 - 32 mmol/L LAB CHEMISTRY METHOD 06/25/2024 4:33 PM [facility] Anion Gap 13(H) 3 - 11 LAB CHEMISTRY METHOD 06/25/2024 4:33 PM [facility] Glucose 271(H) 70 - 100 mg/dL LAB CHEMISTRY METHOD 06/25/2024 4:33 PM [facility] BUN 79(H) 5 - 25 mg/dL LAB CHEMISTRY METHOD 06/25/2024 4:33 PM [facility] Comment:Results verified by repeat testing Creatinine 7.76(H) 0.50 - 1.10 mg/dL LAB CHEMISTRY METHOD 06/25/2024 4:33 PM [facility] Comment:Results verified by repeat testing eGFR 5(L) >=60 mL/min/1. 73m2 LAB CHEMISTRY METHOD 06/25/2024 4:33 PM [facility] Comment:Calculation based on the Chronic Kidney Disease Epidemiology Collaboration (CKD-EPI) equation refit without adjustment for race. BUN/Creatinine Ratio 10.2 LAB CHEMISTRY METHOD 06/25/2024 4:33 PM [facility] Calcium 8.6 8.5 - 10.5 mg/dL LAB CHEMISTRY METHOD 06/25/2024 4:33 PM [facility] AST (SGOT) 14 10 - 42 unit/L LAB CHEMISTRY METHOD 06/25/2024 4:33 PM [facility] ALT (SGPT) 6(L) 10 - 60 unit/L LAB CHEMISTRY METHOD 06/25/2024 4:33 PM [facility] Alkaline Phosphatase 196(H) 42 - 121 unit/L LAB CHEMISTRY METHOD 06/25/2024 4:33 PM [facility] Total Protein 6.4 6.0 - 8.0 g/dL LAB CHEMISTRY METHOD 06/25/2024 4:33 PM [facility] Albumin 3.2 3.2 - 5.0 g/dL LAB CHEMISTRY METHOD 06/25/2024 4:33 PM EST [facility] Total Bilirubin 0.5 0.0 - 1.4 mg/dL LAB CHEMISTRY METHOD 06/25/2024 4:33 PM EST [facility] Blood Venous blood specimen / Unknown Venipuncture / Unknown 06/25/2024 9:50 AM EST 06/25/2024 1:06 PM EST Jass Gomez LAB BLOOD ORDERABLES Final Resul t [facility] [address] [place] [address], documented in this encounter Visit Diagnoses Diagnosis Type 2 diabetes mellitus without complications (CMS/HCC V24, CMS/HCC V28) Chronic kidney disease, unspecified documented in this encounter Care Teams Fire Marshal Refinery Relationship Specialty Start Date End Date Jass Gomez [address] [place] [address] [phone] [place] [address] PCP - General 06/25/24 documented as of this encounter
--- OUTSIDE RECORDS SUMMARY | 2025-02-21 09:37 | XMS_ITS | Encounter Summary ---
Author Organization [facility] Address [address] [place] [address] Encounters * CPT with Medical [facility] at [facility] on 2025-02-14 Daughter has reported increased confusion and pcp office would like an assessment. { reasonForRequest : confusion, abnormal labs , patientReports : , denies :[ Unable to void greater than 5 hours , Erection that willnot go away after 2 hours , Fall or trauma that results in urinary incontinence in the set ting of pain , Fall or injury that results in incontinence in the absence of pain ,"Lower back pain either unilateral or bilateral, unable to void, painful urination -hematuria", Painful urination , Frequent and increased urination with flank pain , Painful urination with or without fever , Inability to fully empty bladder , Worst Headache of life , New onset of vision loss , Sudden onset -unilateral weakness/gait disturbance , Fall with head strike and altered LOC , New onset of Slurred speech or difficulty finding words , Sudden Mental status changes , Head pain with fever chills and neck pain , Seizure activity , Head pain not relieved by medication greater than 8 hours , Head pain greater than 8 hours -unrelated to falls or injury , Head pain with nausea vomiting , Dizziness with positional change , Sensitive to light ], chiefComplaints : Confusion, Urinary Symptoms, Abnormal Lab Value , pmh : Congestive Heart Failure, Dementia (e.g., Alzheimer's Disease), Chronic Kidney Disease, Diabetes Mellitus Type 2, Parkinson's Disease, Hyperlipidemia, Gastroesophageal Reflux Disease (GERD), Schizophrenia , allergies : Mellaril, Miralax, Thioridazine , otherAllergies :null, painAssessment : , vis itOutcome : , additionalComments : 80 y.o female complains of Confusion, Urinary Symptoms\nPatient RECYCLER making referral after telehealth visit. Requesting labs and is sending requisition. \nDaughter reports patient has had some increased confusion. \nquestioning whetherit is neurological or possible UTI\npatient on dialysis and does not void with strong hx of UTIs\ndenies any fever chills or body aches\ndenies any nausea vomiting or diarrhea.\nrequesting insted forassessment \n\nI provided information on the mobile health provider response time and advised the patient and/or caregiver to monitor reported signs and symptoms. I discussed the warning signs of when to seek emergency care. } Dispatched to above address for UTI AMS. On arrival patient 80 y/o F, found sitting on couch, awakebut somnolent, airway patent, speaking in full sentences, good color, in no apparent distress. Patient is Faroese speaking only. Patients daughter on scene to translate. Patient daughter reports thisis patients baseline mental status. States around 0400 today patient woke up and attempted to get out of bed to cook for her who some years ago, was calmed down and went back to sleep, since has been her normal mental status, acting normally, states this happens occasionally, wants to ensure there is no infection. Patients vital signs checked. Patients daughter reports she is eating and drinking normally, no fever, reports of pain or discomfort. Secondary assessment, pupils PERRL, airway patent, no JVD, trachea midline, equal chest rise and fall, lungs clear all [place], abdomen soft non tender, no signs of trauma, good radial pulse, skin pink warm and dry. Patients daughter reports labs from Dialysis came back today and were fine. [facility] contacted, spoke with Dr. Strickland, advised of patient complaints and exam findings. [facility] recommends home care, monitoring symptoms and follow up if needed. Patient and family agree with this plan. Patient and family advised of red flags, home care and need for follow up. Patient and family have no additional questions or concerns at this time. SC8 clear. EOR. IV_(FLUIDS_AND/OR_MEDICATION), MEDICATION_IM, ORAL_MEDICATION, EKG, POC_BLOODWORK, GLUCOSE, URINE_DIPSTICK, CULTURE_URINE Written by Medical instED on 2025-02-14
--- OUTSIDE RECORDS SUMMARY | 2025-02-21 09:37 | XMS_ITS | Encounter Summary ---
Author Organization [facility] Address [address] [place] [address] Care Team Providers Care Rn Geriatric Name Role Phone Jass Gomez Primary Care Provider [phone] Encounter Details Date Type Department Care Team (Late st Contact Info) Description 06/29/2024 Lab Requisition [facility] - Main Lab [address] [place] [address] Jass Gomez [address] [facility] [phone] [place] [address] Hyperkalemia; Chronic diastolic (congestive) heart failure (CMS/HCC V24, [...] Procedure Name Priority Date/Time Associated Diagnosis Comments COMPLETE BLOOD COUNT Routine 07/02/2024 9:27 AM EST Hyperkalemia Chronic diastolic (congestive) heart failure (CMS/HCC) BASIC METABOLIC PANEL Routine 07/02/2024 9:27 AM EST Hyperkalemia Chronic diastolic (congestive) heart failure (CMS/HCC) documented in this encounter Results * (ABNORMAL) Basic metabolic panel (07/02/2024 9:27 AM EST) Sodium 130(L) 133 - 145 mmol/L LAB CHEMISTRY METHOD 07/02/2024 12:37 PM EST [facility] Potassium 4.7 3.5 - 5.5 mmol/L LAB CHEMISTRY METHOD 07/02/2024 12:37 PM [facility] Chloride 94(L) 96 - 110 mmol/L LAB CHEMISTRY METHOD 07/02/2024 12:37 PM [facility] CO2 26 21 - 32 mmol/L LAB CHEMISTRY METHOD 07/02/2024 12:37 PM [facility] Anion Gap 10 3 - 11 LAB CHEMISTRY METHOD 07/02/2024 12:37 PM [facility] Glucose 177(H) 70 - 100 mg/dL LAB CHEMISTRY METHOD 07/02/2024 12:37 PM [facility] BUN 52(H) 5 - 25 mg/dL LAB CHEMISTRY METHOD 07/02/2024 12:37 PM [facility] Creatinine 6.05(H) 0.50 - 1.10 mg/dL LAB CHEMISTRY METHOD 07/02/2024 12:37 PM [facility] eGFR 7(L) >=60 mL/min/1. 73m2 LAB CHEMISTRY METHOD 07/02/2024 12:37 PM [facility] Comment:Calculation based on the Chronic Kidney Disease Epidemiology Collaboration (CKD-EPI) equation refit without adjustment for race. BUN/Creatinine Ratio 8.6 LAB CHEMISTRY METHOD 07/02/2024 12:37 PM [facility] Calcium 8.9 8.5 - 10.5 mg/dL LAB CHEMISTRY METHOD 07/02/2024 12:37 PM [facility] Blood Venous blood specimen / Unknown Venipuncture / Unknown 07/02/2024 9:27 AM EST 07/02/2024 11:21 AM EST Jass Gomez LAB BLOOD ORDERABLES Final Resul t [facility] [address] [place] [address], * (ABNORMAL) Complete blood count (07/02/2024 9:27 AM EST) [facility] WBC 9.8 4.8 - 10.8 K/mcL LAB HEMETOLOGY METHOD 07/02/2024 11:45 AM [facility] RBC 2.80(L) 3.80 - 4.80 M/mcL LAB HEMETOLOGY METHOD 07/02/2024 11:45 AM [facility] Hemoglobin 8.8(L) 11.5 - 16.0 g/dL LAB HEMETOLOGY METHOD 07/02/2024 11:45 AM [facility] Hematocrit 25.6(L) 35.0 - 47.0 % LAB HEMETOLOGY METHOD 07/02/2024 11:45 AM [facility] MCV 93.1 79.0 - 98.0 FL LAB HEMETOLOGY METHOD 07/02/2024 11:45 AM [facility] MCH 32.0 27.0 - 32.0 pcg LAB HEMETOLOGY METHOD 07/02/2024 11:45 AM [facility] MCHC 34.4 32.0 - 37.0 g/dL LAB HEMETOLOGY METHOD 07/02/2024 11:45 AM [facility] RDW 13.8 11.0 - 15.0 % LAB HEMETOLOGY METHOD 07/02/2024 11:45 AM [facility] Platelets 200 130 - 400 K/mcL LAB HEMETOLOGY METHOD 07/02/2024 11:45 AM [facility] MPV 10.0 7.0 - 11.0 FL LAB HEMETOLOGY METHOD 07/02/2024 11:45 AM [facility] NRBC 0.0 <1.0 % LAB HEMETOLOGY METHOD 07/02/2024 11:45 AM [facility] NRBC Absolute 0.00 <0.10 K/mcL LAB HEMETOLOGY METHOD 07/02/2024 11:45 AM EST [facility] Blood Venous blood specimen / Unknown Venipuncture / Unknown 07/02/2024 9:27 AM EST 07/02/2024 11:21 AM EST Jass Gomez LAB BLOOD ORDERABLES Final Resul t [facility] [address] [place] [address], documented in this encounter Visit Diagnoses Diagnosis Hyperkalemia Hyperpotassemia Chronic diastolic (congestive) heart failure (CMS/HCC V24, CMS/HCC V28) documented in this encounter Care Teams Rn Geriatric Relationship Specialty Start Date End Date Jass Gomez [phone] [place] [address] PCP - General 06/25/24 documented as of this encounter
--- OUTSIDE RECORDS SUMMARY | 2025-02-21 09:37 | XMS_ITS | Encounter Summary ---
Author Organization [facility] Address [address] [place] [address] Encounters * CPT with Medical instED at [facility] on 2025-02-16 { reasonForRequest : abnormal labs , patientReports : ,"denies :[ Unable to void greater than 5 hours , Erection that will not go away after 2 hours , Fall or trauma that results in urinary incontinence in the setting of pain , Fall or injury that results in incontinence in the absence of pain , Lower back pain either unilateral or bilateral, unable to void, painful urination -hematuria , Painful urination , Frequent and increased urination with flank pain , Painful urination with or without fever , Inability to fully empty bladder ], chiefComplaints : Abnormal Lab Value , pmh : Congestive Heart Failure, Dementia (e.g., Alzheimer's Disease), Chronic Kidney Disease, Diabetes Mellitus Type 2, Parkinson's Disease, Hyperlipidemia, Gastroesophageal Reflux Disease (GERD), Schizophrenia , allergies :"Mellaril, Miralax, Thioridazine , otherAllergies :null, painAssessment :&q uot; , visitOutcome : , additionalComments : 80 y.o femalecomplains of Abnormal Lab Value\nPCP requesting send out labs and UA and culture secondary to concern of increased confusion. Patient is homebound. \n\nI provided information on the mobile health provider response time and advised the patient and/or caregiver to monitor reported signs and symptoms.I discussed the warning signs of when to seek emergency care. } Arrived to find pt in residence. Patient at her mental baseline . GCS 15 skin pink warm and dry. Dialysis patient MWF schedule. No missed appts. Patient fistula in left arm. Patient family stated that she has increased confusion. PCP ordered labs and urine. Patient family denied urine as it would be a straight cath. [facility] noted. Blood obtained via left arm. VS as noted. No red flag symptoms. IV_(FLUIDS_AND/OR_MEDICATION), MEDICATION_IM, POC_BLOODWORK Written by Medical instED on 2025-02-16
--- OUTSIDE RECORDS SUMMARY | 2025-02-21 09:37 | XMS_ITS | Clinical Summary ---
Author Organization [address] Address [address] [place] [address] Phone Care Team Providers Care Manager Global Communications Name Role Phone PilarcatiaJass Primary Care Provider [phone] Social History Tobacco Use Types Packs/Day Years Used Date Smoking Tobacco: Never Assessed Comments Unknown Sex and Gender Information Value Date Recorded Sex Assigned at Not on file Legal Sex Female 10:08 AM EST Gender Identity Not on file Sexual Orientation Not on file Plan of Treatment Health Maintenance Due Date Last Done Comments Diabetes: Annual Foot Exam 01/19/1955 Diabetes: Annual Retina Eye Exam 01/19/1955 Zoster Vaccines (2 of 3) 03/05/2015 01/08/2015 RSV Immunization Adult Patients (1 - 1-dose 75+ series) 2021 Depression Screening 05/30/2024 Cholesterol Screening (Lipid Panel) 06/25/2024 Diabetes: Annual Urine Albumin-Creatinine Ratio (uACR) 06/25/2024 Falls Risk Assessment 06/25/2024 Hepatitis C Screening 06/25/2024 Osteoporosis Screening (Bone Density Screening) 06/25/2024 Social Influencers of Health Screening 06/25/2024 Diabetes: Blood Sugar Control Test (HGBA1C) 12/23/2024 06/25/2024 COVID-19 Vaccine ( season) 2025 03/12/2022, 11/13/2021, 04/03/2021, Additional history exists Influenza Vaccine (#1) 2025 , 03/24/2022, 03/13/2021, Additional history exists Diabetes: Annual GFR (Glomerular Filtration Rate) 07/02/2025 07/02/2024, 06/25/2024 Hypertension/CHF/CAD Annual BMP Blood Test 07/02/2025 07/02/2024, 06/25/2024 DTaP,Tdap,and Td Vaccines (5 - Td or Tdap) 06/18/2034 06/18/2024, 04/30/2014, 06/10/2009, Additional history exists Pneumococcal Vaccine: 50+ Years Completed 10/22/2014, 08/01/2013, 04/14/2011 HIB Vaccines Aged Out No longer eligi ble based on patient's age to complete this topic HPV Vaccines Aged Out No longer eligi ble based on patient's age to complete this topic Hepatitis A Vaccines Aged Out No long er eligible based on patient's age to complete this topic Hepatitis B Vaccines Aged Out No long er eligible based on patient's age to complete this topic IPV Vaccines Aged Out No longer eligi ble based on patient's age to complete this topic MMR Vaccines Aged Out No longer eligi ble based on patient's age to complete this topic Meningococcal ACWY Vaccine Aged Out N o longer eligible based on patient's age to complete this topic Meningococcal B Vaccine Aged Out No l onger eligible based on patient's age to complete this topic RSV Immunization Patients Under 20 months Aged Out No longer eligible based on patient's age to complete this topic Varicella Vaccines Aged Out No longer eligible based on patient's age to complete this topic Procedures Procedure Name Priority Date/Time Associated Diagnosis Comments BASIC METABOLIC PANEL Routine 07/02/2024 9:27 AM EST Hyperkalemia Chronic diastolic (congestive) heart failure ([facility]/HCC) HEMOGLOBIN A1C Routine 06/25/2024 9:50 AM EST Type 2 diabetes mellitus without complications ([facility]) Chronic kidney disease, unspecified from Last 3 Months or Most Recently Relevant to Health Maintenance Results * (ABNORMAL) Basic metabolic panel (07/02/2024 9:27 AM EST) Sodium 130(L) 133 - 145 mmol/L LAB CHEMISTRY METHOD 07/02/2024 12:37 PM EST [facility] Potassium 4.7 3.5 - 5.5 mmol/L LAB CHEMISTRY METHOD 07/02/2024 12:37 PM EST [facility] Chloride 94(L) 96 - 110 mmol/L [...] 9:27 AM EST 07/02/2024 11:21 AM EST us Jass Gomez LAB BLOOD ORDERABLES Final Resul t [facility] [address] [place] [address], * (ABNORMAL) Hemoglobin A1c (06/25/2024 9:50 AM EST) Hemoglobin A1C 7.4(H) <6.5 % LAB CHEMISTRY METHOD 06/25/2024 9:14 PM EST [facility] Mean Bld Glu Estim. 166 mg/dL LAB CHEMISTRY METHOD 06/25/2024 9:14 PM EST [facility] Blood Venous blood specimen / Unknown Venipuncture / Unknown 06/25/2024 9:50 AM EST 06/25/2024 1:06 PM EST us Jass Gomez LAB BLOOD ORDERABLES Final Resul t [facility] [address] [place] [address], from Last 3 Months or Most Recently Relevant to Health Maintenance Insurance MEDICAID - [place] Care Teams Manager Global Communications Relationship Specialty Start Date End Date Jass Gmoez [phone] [place] [address] PCP - General 06/25/24
--- OUTSIDE RECORDS SUMMARY | 2025-02-21 09:37 | XMS_ITS | Encounter Summary ---
Author Organization [facility] Address [address] [place] [address] Encounters * CPT with Medical instED at [facility] on 2025-02-17 { reasonForRequest : Urine culture , patientReports : ,"denies :[ Unable to void greater than 5 hours , Erection that will not go away after 2 hours , Fall or trauma that results in urinary incontinence in the setting of pain , Fall or injury that results in incontinence in the absence of pain , Lower back pain either unilateral or bilateral, unable to void, painful urination -hematuria ], chiefComplaints : Abnormal Lab Value , pmh : Congestive Heart Failure,Dementia (e.g., Alzheimer's Disease), Chronic Kidney Disease, Diabetes Mellitus Type 2, Parkinson'sDisease, Hyperlipidemia, Gastroesophageal Reflux Disease (GERD), Schizophrenia , allergies : Mellaril, Miralax, Thioridazine , otherAllergies :null, painAssessm ent : , visitOutcome : , additionalComments : 80 y.o female complains of Abnormal Lab Value \n\nPCP requesting send UA and culture secondary to concern of increased confusion. Patient is homebound.\n\n\nI provided information on the mobile health provider response time and advised the patient and/or caregiver to monitor reported signs and symptoms. I discussed the warning signs of when to seek emergency care.\n } [facility]6 responds to the listed address for a 80 yof w/ possible urinary symptoms. This is a request forurine culture and UA by pt's PCP. Upon arrival on scene, pt's daughter, w/ whom she lives and is CG, answers the door and invites MIHinside. Pt is found asleep in a hospital bed in the living room of a small and well-kept home, asleep and snoring. Daughter laughs and said she just laid the pt down after she ate her lunch and she "always falls right to sleep. She loves her sleep! . She is easily arousable to voice. She is generally well-appearing and not in acute distress. No facial droop or one-sided weakness are observed and she is not bleeding anywhere. Daughter tells [facility] the pt had a phone call appointment w/ her PCP on because CG has been concerned about some increasing confusion as of late. Pt has dementia and Parkinsons at baseline as well as kidney failure, for which she gets dialysis three times per week. Pt's PCP ordered blood work and UA/UC. Blood was collected yesterday according to CG. Ptproduces very little urine, but does still sometimes urinate in the toilet, but not often and not a lot of output. CG endorses very little output in the past couple days. takes pt's vital signs every day and shows [facility] her written record of vital signs WNL and no fevers documented. CGis denying fevers/chills today and pt's glucose is well controlled. Appetite has been good and pt is drinking fluids to her maximum fluid restriction. Pt is offering no complaints at this time and continues to closed her eyes and fall back to sleep throughout, which CG says is normal. Ddx: UTI, systemic infection, increasing age-related dementia [facility] obtains vital signs and calls [facility] to discuss further assessment and to gain permission for straight catheterization. [facility] grants permission. Pt is placed flat in the bed and CG removes her clothing and briefs fro the waist down. Pt's knees are bent and feet are placed together and knees are opened. Visual inspection of the region is normal w/ no bleeding, discharge, redness, swelling, or malodor noted. Pt is prepped and catheterization is attempted using sterile technique. First attempt is unsuccessful. Pt is again prepped and straight cath is performed using sterile technique. Approx 3mls of urine is obtained and UA and UC are not performed. [facility] contacts [facility] and [facility] is not concerned w/ the amount of urine obtained nor is [facility] concerned for UTI, as she explains it is difficult and unusual for someone who does not produce much urine to develop UTI. She encourages CG to contact pt's PCP again to see what PCP wants to do next. is agreeable to the plan and is grateful for [facility] visit. [facility] informs to seek emergency care if the pt's confusion gets worse, she develops a high fever, blood in the urine or stools, or seizure activity is observed. MIH is clear. Report completed by BONITA Puga [id number]. IV_(FLUIDS_AND/OR_MEDICATION), MEDICATION_IM, POC_BLOODWORK Written by Medical instED on 2025-02-17
--- OUTSIDE RECORDS SUMMARY | 2025-02-21 09:37 | XMS_ITS | Continuity of Care Document ---
Author Name instED, Medical Address [address] [place] [address] Organization Unknown Address [address] [place] [address] Medications No known medications Problems No known problems
--- OUTSIDE RECORDS SUMMARY | 2025-02-21 09:37 | XMS_ITS | Encounter Summary ---
Author Organization [facility] Address [address] [place] [address] Phone Care Team Providers Care Harpooner Name Role Phone Teodoro Galeana MD Primary Care Provider [phone] Reason for Visit * Reason Comments Med Refill Encounter Details Date Type Department Care Team (Late st Contact Info) Description 03/31/2022 Refill [facility], [address] [place] [address] Nuvia Canas PA Social History Tobacco Use Types Packs/Day Years [...] documented as of this encounter Visit Diagnoses Not on filedocumented in this encounter Care Teams Harpooner Relationship Specialty Start Date End Date Teodoro Galeana MD [facility] PCP - General 04/03/19 documented as of this encounter
== END 2025-02-21 10:00 | disposition home or self-care (01) ==
LOC: HO.HSMS 08:55
PROVIDERS: PCP Pediatrics; Visit Provider Nurse Practitioner Family
DX: G20.A1 Parkinson's disease without dyskinesia, without mention of fluctuations (principal); R44.3 Hallucinations, unspecified; K59.04 Chronic idiopathic constipation
CPT/HCPCS: 99214; G2211

== ENCOUNTER → 2025-02-21 08:54 | Outpatient (BNVA) | payer OTHER, SELFPAY | PROVIDERS: PCP Pediatrics; Visit Provider Nurse Practitioner Family | DX: G20.A1 Parkinson's disease without dyskinesia, without mention of fluctuations (principal); K59.04 Chronic idiopathic constipation; R44.3 Hallucinations, unspecified | CPT/HCPCS: 99212 ==